=== PATIENT | male | born 1955 | race Caucasian/White ===

== ENCOUNTER → 2016-07-26 | Outpatient (CLI) | payer BC ==
[~2016-07-26] MED LIST: ASPCH81X PO; HYDR25TA5 PO; METF1TAB53 PO; MULT-506 PO; OMEG10007 PO; OXYC-57 PO; POTATAB13 PO
--- NOTE | 2016-07-26 08:56 | DIAGNOSTIC IMAGING REPORT ---
KUB HISTORY: NEPHROLITHIASIS 592.0,N20.0 COMPARISON: KV 02/08/2016. FINDINGS: The bowel gas pattern is unremarkable. There are no dilated loops of small bowel to suggest an obstruction. A few small stones within the left kidney, unchanged. Dominant stone measures 4 mm. There is also a small stone within the lower pole of the right kidney. No ureteral or bladder calculi. No pneumoperitoneum or pneumatosis. IMPRESSION: Stable bilateral nephrolithiasis. Electronically signed by: Donal Marin M.D. 07/26/2016 8:54 AM Dictated Date/Time: 07/26/2016 8:53 AM
== END ==
LOC: C.RAD 08:28
PROVIDERS: ATTEND Urology
DX: N20.0 Calculus of kidney (principal)

== ENCOUNTER → 2017-02-15 | Outpatient (CLI) | payer BC ==
--- NOTE | 2017-02-15 08:37 | DIAGNOSTIC IMAGING REPORT ---
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 Maximum dimension left is 4 mm and on the right 2.5 mm. No new or additional calcifications. Nonobstructive bowel pattern. IMPRESSION: Bilateral nephrocalcinosis. No change from the prior study. The above report was generated using voice recognition software. It may contain grammatical, syntax or spelling errors. Electronically signed by: Desmond Callaway M.D. 02/15/2017 8:36 AM Dictated Date/Time: 02/15/2017 8:34 AM
== END | disposition home or self-care (01) ==
LOC: C.LAB 08:16
PROVIDERS: ATTEND Urology
DX: E83.59 Other disorders of calcium metabolism (principal); N29 Other disorders of kidney and ureter in diseases classified elsewhere; N40.1 Benign prostatic hyperplasia with lower urinary tract symptoms

== ENCOUNTER 2018-02-10 19:14 | Inpatient (IN) ==
[2018-02-10] MEDS ORDERED: ACETAMINOPHEN 500 MG TAB PO STA (19:28)
[2018-02-10] MEDS ORDERED: SODIUM CHLORIDE 0.9% 1000ML 1,000 ML IV SCH (19:30)
--- NOTE | 2018-02-10 19:57 | Emergency Department Note ---
Entered by Lyndsay Oh acting as a scribe for ED Provider Note CHIEF COMPLAINT: Fever HISTORY OF PRESENT ILLNESS: The patient is a 62 year old male with a history of type 2 diabetes and hypertension who presents to the Emergency Room with complaints of a worsening fever starting yesterday night. The patient reports that he had a transrectal biopsy of the prostate performed by Dr. Padilla 2 days ago. He states that he felt uncomfortable secondary to the biopsy yesterday but did not have any rectal or urinary problems aside for diarrhea starting yesterday. He notes that he did not sleep well last night because he developed a fever and chills accompanied by heart racing and intermittent shooting abdominal pain. He currently denies any abdominal pain but complains of a new mid-back pain. The patient also denies any cough, sore throat, rhinorrhea, and chest pain in addition to any recent sick contact. He reports that he took Motrin around 1730 for his symptoms and does not regularly take medications. He states that he did not try contacting Dr. Padilla about his symptoms before presenting to the ED. Pt denies LOC, headache, diaphoresis, visual changes, neck pain, breathing difficulties, nausea, vomiting, numbness, weakness, lymphadenopathy, rash, or other complaints. REVIEW OF SYSTEMS: See HPI for pertinent positives and negatives. A total of ten systems were reviewed and were otherwise negative. PMHx/PSHx: Type 2 diabetes Hypertension SOCIAL HISTORY: Patient lives at home. PHYSICAL EXAM: GENERAL: Awake, alert, well-appearing, in no distress HENT: Normocephalic, atraumatic. Oropharynx unremarkable. EYES: Normal conjunctiva. Sclera non-icteric. NECK: Inspection normal. Non-tender. Supple. No nuchal rigidity. FROM. No masses. RESPIRATORY: Clear to auscultation. No wheezes. No rales. Normal respiratory effort. CARDIAC: Normal rate. Boderline tachycardic rhythm. No murmurs. No rubs. Extremities warm and well perfused. Pulses equal. No JVD. GI: Soft, non-distended. No rebound or guarding. No masses. Left lower and suprapubic tenderness. RECTAL: Deferred. MUSCULOSKELETAL: Atraumatic. Chest examination reveals no tenderness. The back is symmetrical on inspection without obvious abnormality. There is no CVA tenderness to palpation. No joint edema. LOWER EXTREMITIES: Calves are equal size bilaterally and non-tender. No edema. No discoloration. NEURO: Normal sensorium. No sensory or motor deficits noted. SKIN: No rash or jaundice noted. EMERGENCY DEPARTMENT COURSE: 1926: Past medical records reviewed. The patient was evaluated in room B3B, and a complete history and physical examination were performed. 2110: I reviewed the patient's case with Dr. Mcqueen - Urology, [facility]. Dr. Mcqueen agrees with the broad spectrum antibiotics and admission to medicine. 2205: I checked on the patient and updated him on his test results. 2211: I reviewed the patient's case with Dr. Peralta - [facility]. Dr. Peralta will evaluate the patient for further management. MEDICAL DECISION MAKING: Triage Nursing notes reviewed. The patient's presentation and history were concerning for fever and recent biopsy. Etiologies such as viral syndrome, urinary tract infection, sepsis, bacteremia, pneumonia, meningitis, as well as others were entertained. Patient was evaluated. He had chills and rigors. Shortly after the initial physical the patient spiked a temperature up to 39. He was treated with Tylenol. He was hydrated. Blood work including blood cultures were obtained. Urine and urine culture was obtained. He was given a dose of IV Zosyn. His blood work was rather unremarkable however his pro calcitonin was elevated. This is concerning for possible bacteremia. The patient's urinalysis was concerning for infection. I discussed the case with the on-call urologist, Dr. Mcqueen. He agreed with broad-spectrum antibiotics and need for hospitalization. The patient was informed of the findings. I did discuss the case with internal medicine. The patient was evaluated in the ER and admitted for further management. IMPRESSION: UTI Status post biopsy Suspected bacteremia PLAN: Admit The scribe's documentation has been prepared under my direction and personally reviewed by me in its entirety. I confirm that the note above accurately reflects all work, treatment, procedures, and medical decision making performed by me. Impression & Plan Febrile illness, UTI (urinary tract infection), Status post biopsy Past Med/Surg History Medical History Diabetes mellitus, type 2 (Chronic) Hypertension (Chronic) History of renal calculi (Chronic) Surgical History H/O left knee surgery (Chronic) Social History marital status: Current Living Situation: Spouse current occupational status: retired Other Information That Helps Us Care for You: No Feels Safe at Home: Yes Safety Concerns: Feels Safe At This Time Smoking Status: Never smoker Do You Dip or Chew Tobacco: No Second Hand Exposure: No Tobacco Cessation Education Requested by Patient: No Hx Alcohol Use: No Hx Substance Use: No Beliefs That Will Affect Care: None Preferred Language: Macanese Communication Ability: Effective H[place] Required: No Results & Data Vital Signs Vital Signs - 24 hr 02/10/18 19:17 02/10/18 20:15 02/10/18 20:55 Temperature 38.4 C H 39.2 C H 38.3 C H Temperature Source Oral Oral Oral Sepsis Recent Fever Within 48 Hours No Sepsis Action Taken by Nursing No Action Required Pulse Rate 95 H Pulse Rate [Apical] 96 H Pulse Rhythm [Apical] Pulse Strength [Apical] Respiratory Rate 18 18 Respiratory Effort / Characteristics Non-Labored Spontaneous Respiratory Depth Normal Normal Respiratory Pattern Blood Pressure 139/80 Blood Pressure [Left Arm] 134/79 Blood Pressure Mean 99 Blood Pressure Mean [Left Arm] 97 Blood Pressure Position [Left Arm] Pulse Oximetry 100 Oxygen Delivery Method Room Air 02/10/18 21:30 02/10/18 23:44 02/11/18 00:00 Temperature 39.3 C H Temperature Source Oral Sepsis Recent Fever Within 48 Hours Sepsis Action Taken by Nursing Pulse Rate 108 H 108 H Pulse Rate [Apical] 86 110 H Pulse Rhythm [Apical] Regular Pulse Strength [Apical] Normal Respiratory Rate 18 18 20 Respiratory Effort / Characteristics Non-Labored Spontaneous Respiratory Depth Normal Normal Respiratory Pattern Regular Blood Pressure 143/68 H Blood Pressure [Left Arm] 136/68 143/79 H Blood Pressure Mean Blood Pressure Mean [Left Arm] 90 100 Blood Pressure Position [Left Arm] Sitting Pulse Oximetry 95 98 95 Oxygen Delivery Method Room Air Room Air Room Air 02/11/18 01:29 Temperature 39 C H Temperature Source Oral Sepsis Recent Fever Within 48 Hours Sepsis Action Taken by Nursing Pulse Rate Pulse Rate [Apical] Pulse Rhythm [Apical] Pulse Strength [Apical] Respiratory Rate Respiratory Effort / Characteristics Respiratory Depth Respiratory Pattern Blood Pressure Blood Pressure [Left Arm] Blood Pressure Mean Blood Pressure Mean [Left Arm] Blood Pressure Position [Left Arm] Pulse Oximetry Oxygen Delivery Method Home Medications Current Medication List: was personally reviewed by me Laboratory Data Attestation: I reviewed the patient's lab results. Result diagrams: 02/10/18 20:10 02/10/18 20:10 Lab Results 02/10/18 02/10/18 02/10/18 Range/Units 19:45 20:10 20:10 WBC 8.40 (4.8-10.8) K/uL RBC 5.22 (4.7-6.1) M/uL Hgb 16.4 (14.0-18.0) g/dL Hct 45.5 (42-52) % MCV 87.2 (80-100) fL MCH 31.4 (25-34) pg MCHC 36.0 (32-36) g/dL RDW Std Deviation 40.7 (36.4-46.3) fL RDW Coeff of Lilian 12.7 (11.5-14.5) % Plt Count 106 L (130-400) K/uL MPV 9.3 (7.4-10.4) fL Immature Gran % (Auto) 0.4 % Neut % (Auto) 89.7 % Lymph % (Auto) 4.9 % Delta % (Auto) 4.9 % Eos % (Auto) 0.0 % Baso % (Auto) 0.1 % Immature Gran # (Auto) 0.03 H (0.00-0.02) K/uL Neut # (Auto) 7.54 H (1.4-6.5) K/uL Lymph # (Auto) 0.41 L (1.2-3.4) K/uL Delta # (Auto) 0.41 (0.11-0.59) K/uL Eos # (Auto) 0.00 (0-0.5) K/uL Baso # (Auto) 0.01 (0-0.2) K/uL Sodium (136-145) mmol/L Potassium (3.5-5.1) mmol/L Chloride (98-107) mmol/L Carbon Dioxide (21-32) mmol/L Anion Gap (3-11) BUN (7-18) mg/dl Creatinine (0.6-1.4) mg/dl Est Cr Clr Drug Dosing ml/min Est GFR ( Amer) Est GFR (Non-Af Amer) BUN/Creatinine Ratio (10-20) Glucose (70-99) mg/dl Lactate (0.4-2.0) mmol/L Calcium (8.5-10.1) mg/dl Total Bilirubin (0.2-1) mg/dl AST (15-37) U/L ALT (12-78) U/L Alkaline Phosphatase (45-117) U/L Total Protein (6.4-8.2) gm/dl Albumin (3.4-5.0) gm/dl Globulin (2.5-4.0) gm/dl Albumin/Globulin Ratio (0.9-2) Procalcitonin 1.78 H (0-0.5) ng/ml Urine Color Dark Yellow Urine Appearance Cloudy H (Clear) Urine pH 5.0 (4.5-7.5) Ur Specific [place] 1.023 (1.000-1.030) Urine Protein 1+ H (Negative) Urine Glucose (UA) Trace H (Negative) Urine Ketones Trace H (Negative) Urine Blood 3+ H (Negative) Urine Nitrite Positive H (Negative) Urine Bilirubin Negative (Negative) Urine Urobilinogen Negative (Negative) Ur Leukocyte Esterase 1+ H (Negative) Urine WBC (Auto) >30 H (0-5) /hpf Urine RBC (Auto) >30 H (0-4) /hpf U Hyaline Cast (Auto) 1-5 (0-5) /lpf U Epithel Cells (Auto) 0-5 (0-5) /lpf Urine Bacteria (Auto) 1+ H (Negative) 02/10/18 02/11/18 Range/Units 20:10 00:25 WBC (4.8-10.8) K/uL RBC (4.7-6.1) M/uL Hgb (14.0-18.0) g/dL Hct (42-52) % MCV (80-100) fL MCH (25-34) pg MCHC (32-36) g/dL RDW Std Deviation (36.4-46.3) fL RDW Coeff of Lilian (11.5-14.5) % Plt Count (130-400) K/uL MPV (7.4-10.4) fL Immature Gran % (Auto) % Neut % (Auto) % Lymph % (Auto) % Delta % (Auto) % Eos % (Auto) % Baso % (Auto) % Immature Gran # (Auto) (0.00-0.02) K/uL Neut # (Auto) (1.4-6.5) K/uL Lymph # (Auto) (1.2-3.4) K/uL Delta # (Auto) (0.11-0.59) K/uL Eos # (Auto) (0-0.5) K/uL Baso # (Auto) (0-0.2) K/uL Sodium 131 L (136-145) mmol/L Potassium 3.5 (3.5-5.1) mmol/L Chloride 96 L (98-107) mmol/L Carbon Dioxide 24 (21-32) mmol/L Anion Gap 11.0 (3-11) BUN 9 (7-18) mg/dl Creatinine 1.13 (0.6-1.4) mg/dl Est Cr Clr Drug Dosing 84.0 ml/min Est GFR ( Amer) 80.9 Est GFR (Non-Af Amer) 69.8 BUN/Creatinine Ratio 8.2 L (10-20) Glucose 182 H (70-99) mg/dl Lactate 2.2 H* (0.4-2.0) mmol/L Calcium 9.1 (8.5-10.1) mg/dl Total Bilirubin 1.5 H (0.2-1) mg/dl AST 26 (15-37) U/L ALT 51 (12-78) U/L Alkaline Phosphatase 65 (45-117) U/L Total Protein 7.7 (6.4-8.2) gm/dl Albumin 3.9 (3.4-5.0) gm/dl Globulin 3.8 (2.5-4.0) gm/dl Albumin/Globulin Ratio 1.0 (0.9-2) Procalcitonin (0-0.5) ng/ml Urine Color Urine Appearance (Clear) Urine pH (4.5-7.5) Ur Specific [place] (1.000-1.030) Urine Protein (Negative) Urine Glucose (UA) (Negative) Urine Ketones (Negative) Urine Blood (Negative) Urine Nitrite (Negative) Urine Bilirubin (Negative) Urine Urobilinogen (Negative) Ur Leukocyte Esterase (Negative) Urine WBC (Auto) (0-5) /hpf Urine RBC (Auto) (0-4) /hpf U Hyaline Cast (Auto) (0-5) /lpf U Epithel Cells (Auto) (0-5) /lpf Urine Bacteria (Auto) (Negative) Administered Medications Acetaminophen (Tylenol) 650 mg PO Q4H PRN PRN Reason: Pain or Fever Stop: 03/13/18 00:09 Last Admin: 02/11/18 00:34 Dose: 650 mg Sodium Chloride (Nss 1000ml) 1,000 mls @ 150 mls/hr IV .Q6H40M [facility] Stop: 03/13/18 00:09 Last Admin: 02/11/18 00:34 Dose: 150 mls/hr Piperacillin Sod/Tazobactam (Sod 3.375 gm/ Dextrose) 115 mls @ 30 mls/hr IV Q8H [facility] Stop: 02/21/18 01:59 Last Admin: 02/11/18 01:23 Dose: 30 mls/hr Vancomycin HCl 2,500 mg/ (Sodium Chloride) 550 mls @ 200 mls/hr IV TODAY@0130 [facility] Stop: 02/11/18 04:14 Last Admin: 02/11/18 01:22 Dose: 200 mls/hr Discontinued Medications Acetaminophen (Tylenol) 1,000 mg PO ONE STA Stop: 02/10/18 19:29 Last Admin: 02/10/18 19:33 Dose: 1,000 mg Sodium Chloride (Nss 1000ml) 1,000 mls @ 999 mls/hr IV .Q1H1M [facility] Stop: 02/10/18 20:30 Last Infusion: 02/10/18 21:10 Dose: 0 mls/hr Admin: 02/10/18 20:14 Dose: 999 mls/hr Piperacillin Sod/Tazobactam Sod (Zosyn) 4.5 gm in 120 mls @ 240 mls/hr IV NOW ONE Stop: 02/10/18 21:23 Last Infusion: 02/10/18 21:51 Dose: 0 mls/hr Admin: 02/10/18 20:59 Dose: 240 mls/hr Ioversol (Optiray 320 125ml) 116 ml IV ONCE PRN PRN Reason: Interaction Checking Stop: 02/14/18 21:10 Last Admin: 02/10/18 21:12 Dose: 116 ml Ondansetron HCl (Zofran) 4 mg IV NOW STA Stop: 02/10/18 23:17 Last Admin: 02/10/18 23:23 Dose: 4 mg Imaging Data Radiologist's Impression: Radiology results as stated below per my review and the radiologist's interpretation: ABDOMEN AND PELVIS CT WITH IV CONTRAST CT DOSE: 880.26 mGy.cm HISTORY: Acute lower abdominal pain with recent prostate biopsy Lower abd pain , fever. Recent prostate biopsy TECHNIQUE: Multiaxial CT images of the abdomen and pelvis were performed following the use of intravenous contrast. A dose lowering technique was utilized adhering to the principles of ALARA. COMPARISON STUDY: CT abdomen and pelvis 09/25/2015 FINDINGS: Lung bases are generally clear. No pneumatosis or pneumoperitoneum. Imaged inferior cardiac chambers demonstrate coronary arterial calcifications. Hepatic steatosis. Liver is otherwise unremarkable. No intrahepatic biliary ductal dilation. Spleen is enlarged, 16.2 cm. Patency of the hepatic and portal veins. The pancreas, gallbladder and adrenal glands are unremarkable. Mild nonspecific bilateral perinephric stranding. 4 mm nonobstructing calculus of the inferior pole right kidney. There are proximally 3 nonobstructing calculi noted about the left kidney measuring up to 4 mm. No ureteral calculi or obstructive uropathy. Mild wall thickening of the urinary bladder with partial distention. Prostamegaly with TURP hyperattenuation noted about the TURP defect. Moderate right and moderate to large left inguinal hernias, fat filled. Calcification of the aorta without aneurysm. IVC is unremarkable. No bowel obstruction. Mild colonic diverticulosis without acute diverticulitis. Linear hyperattenuating focus about the terminal ileum suggests a pill. Normal appendix. No bowel obstruction. Fat filled periumbilical hernia, diastases 2.1 cm. Mild nonspecific stranding about the rectum prosthetic distribution. Indeterminate mildly prominent lymph nodes are seen along the lateral anterior margin of the urinary bladder measuring up to 7 mm in short axis. Bones appear intact. No suspicious lytic or blastic bony lesions. Multilevel spondylitic spurring and facet arthrosis. Grade 1 anterolisthesis L4 on L5. IMPRESSION: 1. Prostatomegaly with TURP defect. Hyperattenuation about the TURP defect suggests hemorrhage at the biopsy site. 2. Mild wall thickening of the bladder with partial distention. Findings may reflect sequela of chronic bladder outlet obstruction or cystitis. Correlate with urinalysis. 3. Nonspecific mildly prominent perivesicular lymph nodes. 4. Colonic diverticulosis. 5. Hepatic steatosis. 6. Additional findings as above. Electronically signed by: Fazal Moore M.D. 02/10/2018 9:50 PM Blood Pressure Blood Pressure Findings: Normal blood pressure Discharge Plan Visit Data *Final* Discharge Date/Time: 02/10/18 23:44 Chief Complaint: Fever Stated Complaint: FEVER 102.4 POST PROCCEDURE ED Provider: Quincy Reddy Discharge Problem: Febrile illness, UTI (urinary tract infection), Status post biopsy Patient Disposition: Admitted As Inpatient Discharge Instructions Interventions: ED Discharge Assessment Last Done: 02/10/18 23:44 The scribe's documentation has been prepared under my direction and personally reviewed by me in its entirety. I confirm that the note above accurately reflects all work, treatment, procedures, and medical decision making performed by me.
[2018-02-10 20:07] LABS: Bacteria Urine Automated 1+ (Negative); Bilirubin Urine Negative (Negative); Color Urine Dark Yellow; Epithelial Cell Urine Auto 0-5 /lpf (0-5); Glucose Urine UA Trace (Negative); Ketones Urine Trace (Negative); Leukocyte Esterase Urine 1+ (Negative); Nitrite Urine Positive (Negative); Protein Urine 1+ (Negative); Specific Gravity Urine 1.023 (1.000-1.030); Urobilinogen Urine Negative (Negative); WBC Urine Automated >30 /hpf (0-5)
[2018-02-10 20:08] LABS: Appearance Urine Cloudy (Clear)
[2018-02-10 20:23] LABS: Basophils # (auto) 0.01 K/uL (0-0.2); Basophils % (auto) 0.1 %; Hematocrit (blood only) 45.5 % (42-52); Hemoglobin 16.4 g/dL (14.0-18.0); Immature Granulocytes # (auto) 0.03 K/uL (0.00-0.02); Immature Granulocytes % (auto) 0.4 %; Lymphocytes # (auto) 0.41 K/uL (1.2-3.4); Lymphocytes % (auto) 4.9 %; Mean Corpuscular Volume 87.2 fL (80-100); Mean Platelet Volume 9.3 fL (7.4-10.4); Monocytes # (auto) 0.41 K/uL (0.11-0.59); Monocytes % (auto) 4.9 %; Neutrophils # (auto) 7.54 K/uL (1.4-6.5); Neutrophils % (auto) 89.7 %; Platelet Count 106 K/uL (130-400); RDW Coefficient of Variation 12.7 % (11.5-14.5); RDW Standard Deviation 40.7 fL (36.4-46.3); Red Blood Count 5.22 M/uL (4.7-6.1)
[2018-02-10 20:45] LABS: Albumin Level 3.9 gm/dl (3.4-5.0); BUN Creatinine Ratio 8.2 (10-20); Calcium 9.1 mg/dl (8.5-10.1); Est GFR (African American) 80.9; Est GFR (Non-African American) 69.8; Potassium 3.5 mmol/L (3.5-5.1)
[2018-02-10 20:48] LABS: Bilirubin,Total 1.5 mg/dl (0.2-1); Globulin 3.8 gm/dl (2.5-4.0); Total Protein 7.7 gm/dl (6.4-8.2)
[2018-02-10] MEDS ORDERED: PIPERACILL/TAZOBAC CONSULT ACTIVE PRN (20:54)
[2018-02-10] MEDS ORDERED: PIPERACILLIN/TAZOBACTAM 4.5 GM/120 ML BAG IV ONE (20:54)
[2018-02-10] MEDS ORDERED: OPTIRAY 320 125ml IV PRN (21:11)
--- NOTE | 2018-02-10 21:52 | CT Scan Report ---
ABDOMEN AND PELVIS CT WITH IV CONTRAST CT DOSE: 880.26 mGy.cm HISTORY: Acute lower abdominal pain with recent prostate biopsy Lower abd pain, fever. Recent prost ate biopsy TECHNIQUE: Multiaxial CT images of the abdomen and pelvis were performed following the use of intrave nous contrast. A dose lowering technique was utilized adhering to the principles of ALARA. COMPARISON STUDY: CT abdomen and pelvis 09/25/2015 FINDINGS: Lung bases are generally clear. No pneumatosis or pneumoperitoneum. Imaged inferior cardiac chambers demonstrate coronary arterial calcifications. Hepatic steatosis. Liver is otherwise unremarkable. No intrahepatic biliary ductal dilation. Spleen i s enlarged, 16.2 cm. Patency of the hepatic and portal veins. The pancreas, gallbladder and adrenal g lands are unremarkable. Mild nonspecific bilateral perinephric stranding. 4 mm nonobstructing calculu s of the inferior pole right kidney. There are proximally 3 nonobstructing calculi noted about the le ft kidney measuring up to 4 mm. No ureteral calculi or obstructive uropathy. Mild wall thickening of the urinary bladder with partial distention. Prostamegaly with TURP hyperattenuation noted about the TURP defect. Moderate right and moderate to large left inguinal hernias, fat filled. Calcification of the aorta without aneurysm. IVC is unremarkable. No bowel obstruction. Mild colonic diverticulosis without acute diverticulitis. Linear hyperattenuati ng focus about the terminal ileum suggests a pill. Normal appendix. No bowel obstruction. Fat filled periumbilical hernia, diastases 2.1 cm. Mild nonspecific stranding about the rectum prosthetic distri bution. Indeterminate mildly prominent lymph nodes are seen along the lateral anterior margin of the urinary bladder measuring up to 7 mm in short axis. Bones appear intact. No suspicious lytic or blast ic bony lesions. Multilevel spondylitic spurring and facet arthrosis. Grade 1 anterolisthesis L4 on L 5. IMPRESSION: 1. Prostatomegaly with TURP defect. Hyperattenuation about the TURP defect suggests hemorrhage at the biopsy site. 2. Mild wall thickening of the bladder with partial distention. Findings may reflect sequela of chron ic bladder outlet obstruction or cystitis. Correlate with urinalysis. 3. Nonspecific mildly prominent perivesicular lymph nodes. 4. Colonic diverticulosis. 5. Hepatic steatosis. 6. Additional findings as above. Electronically signed by: Fazal Moore M.D. 02/10/2018 9:50 PM
[2018-02-10] MEDS ORDERED: ONDANSETRON INJ 2 MG/ML 2 ML VIAL IV STA (23:16)
[2018-02-11] MEDS ORDERED: ONDANSETRON INJ 2 MG/ML 2 ML VIAL IV PRN (00:10)
[2018-02-11] MEDS ORDERED: NITROGLYCERIN SL 0.4 MG/TAB TAB SL PRN (00:10)
[2018-02-11] MEDS ORDERED: PIPERACILL/TAZOBAC CONSULT ACTIVE PRN (00:10)
[2018-02-11] MEDS ORDERED: DEXTROSE 50% 50 ML SYRINGE IV PRN (00:25)
[2018-02-11] MEDS ORDERED: GLUCOSE 40% GEL 15 GM TUBE PO PRN (00:25)
[2018-02-11] MEDS ORDERED: GLUCAGON FOR INJ 1 MG VIAL SQ PRN (00:25)
[2018-02-11] MEDS ORDERED: GLUCOSE 10 TABS/TUBE PO PRN (00:25)
[2018-02-11] MEDS ORDERED: CARBOHYDRATES FOR HYPOGLYCEMIA PO PRN (00:25)
[2018-02-11] MEDS: ACETAMINOPHEN 325 MG TAB PO PRN ×4 (00:34→19:58)
[2018-02-11] MEDS: SODIUM CHLORIDE 0.9% 1000ML 1,000 ML IV SCH ×4 (00:34→19:58)
[2018-02-11] MEDS ORDERED: VANCOMYCIN CONSULT ACTIVE PRN (01:02)
[2018-02-11] MEDS ORDERED: VANCOMYCIN HCL 1,000 MG in SODIUM CHLORIDE 0.9% 250 ML IV SCH (01:15)
[2018-02-11] MEDS: PIPERACILLIN/TAZOBACTAM 3.375 GM in DEXTROSE 5% 100 ML IV SCH ×3 (01:23→17:44)
--- NOTE | 2018-02-11 01:23 | History and Physical Report ---
DATE OF ADMISSION: 02/10/2018 CHIEF COMPLAINT: Fevers, recent TURP procedure. HISTORY OF PRESENT ILLNESS: This is a 62-year-old male with past medical history significant for diabetes, hypertension, history of multiple kidney stones and cystoscopies, chronic kidney disease stage III, BPH, who recently had TURP procedure last Sunday presents with fever at home. Post-procedure, he was told that he will have some hematuria and also some blood in the stools. He had some blood in the stools on Sunday, but that has almost resolved now, but still has some hematuria. No burning micturition, but he was having temperature 101 degrees Fahrenheit at home and also having chills. So he came to the ER. In the ER he was having some temp spike, but hemodynamics are stable and no elevation of white count, but urinalysis was positive. Procalcitonin level was high. ER physician discussed with urologist medical economics consultant and was okay for IV Zosyn and admission in the hospital. Currently, patient feels chilly. He says once in a while he gets shooting pain to the groins. He is somewhat nauseous. Denies any chest pain. No shortness of breath, no cough, no abdominal pain. Currently feeling hungry. Denies any headaches, no dizziness, no blurred visions. No earache, no runny nose, no sore throat, no difficulty swallowing. Currently hemodynamically stable. ALLERGIES: No known drug allergies. PAST MEDICAL HISTORY: As mentioned above. PAST SURGICAL HISTORY: Left knee surgery and recent cystoscopies and recent TURP procedure. MEDICATIONS: The patient is on aspirin 81 mg p.o. daily, Cipro 500 mg b.i.d., hydrochlorothiazide 25 mg p.o. daily, metformin 1000 mg p.o. b.i.d., fish oil 1 gram p.o. daily, potassium citrate 15 mg p.o. daily. FAMILY HISTORY: Significant for diabetes, heart disease, hypertension, kidney disease, and kidney stones. He says his mother had kidney failure and father had kidney cancer. SOCIAL HISTORY: No smoking history. No alcohol. , lives with his . REVIEW OF SYMPTOMS: As per HPI. Rest of review of systems negative. PHYSICAL EXAMINATION: GENERAL: The patient is of moderate build, not in acute distress. VITAL SIGNS: Temperature 38.3, pulse 86, respiratory rate 18, blood pressure 136/68, oxygen 95% on room air. HEENT: No pallor, no icterus. Pupils equal, round, and reactive to light. NECK: No JVD or neck masses, no carotid bruits. CARDIOVASCULAR: S1, S2 heard. Regular rate and rhythm, no murmur, no gallop. RESPIRATORY SYSTEM: Normal AP diameter. No accessory muscle use. No wheezing, no crackles. ABDOMEN: Soft, bowel sounds present. Nontender. No distention. CENTRAL NERVOUS SYSTEM: Cranial nerves II through XII are grossly intact, nonfocal. EXTREMITIES: No edema, no erythema. LABORATORY DATA: WBC is 8.4, hemoglobin 16.4, hematocrit 45.5, platelets 106. Sodium 131, potassium 3.5, chloride 96, CO2 of 24, BUN 9, creatinine 1.1, serum glucose 182, calcium 9.1, total bilirubin 1.5, AST 26, ALT 51, alkaline phosphatase 65, procalcitonin 1.7. Urinalysis, positive for nitrite, leukocyte esterase, and blood. IMAGING DATA: CT of the abdomen and pelvis shows prostatomegaly with TURP defect, hyperattenuation of the TURP defect with hemorrhage at the biopsy site, mild wall thickening of the bladder with partial distention. Findings may reflect sequelae of chronic bladder outlet obstruction and cystitis. Colonic diverticulosis, hepatic steatosis. ASSESSMENT AND PLAN: This is a 62-year-old male who presents with fever post transurethral resection of the prostate . 1. Fever post transurethral resection of the prostate procedure on Sunday. Developed fever today, 101 degrees, also having some chills. Had a temp spike in the ER, but there was no leukocytosis, but says he is still having some chills and we will check the lactic acid for early sepsis. Urinalysis was positive. ER had given IV Zosyn which urology was okay to continue. Will continue IV Zosyn. Follow the lactic acids, follow the blood cultures and urine cultures. Follow the repeat labs. Urology consulted for further recommendation. There is no obvious abscess on the CAT scan, but it is showing mild hemorrhage at the biopsy site. Closely monitor in the tele floor. 2. Diabetes. Hold metformin. Place him on insulin sliding scale. Followup HbA1c level. 3. History of hypertension. Continue to hold hydrochlorothiazide. We will monitor the blood pressure. Currently patient may be in early sepsis. 4. Deep venous thrombosis prophylaxis, sequential compression devices for now. DISPOSITION: Closely monitor in the tele floor. Expect to discharge home and follow with his family doctor. Level 1 full code. MTDD
[2018-02-11] MEDS ORDERED: VANCOMYCIN HCL 2,500 MG in SODIUM CHLORIDE 0.9% 500 ML IV SCH (01:30)
[2018-02-11 05:37] LABS: Basophils # (auto) 0.01 K/uL (0-0.2); Basophils % (auto) 0.1 %; Hematocrit (blood only) 44.3 % (42-52); Hemoglobin 15.6 g/dL (14.0-18.0); Immature Granulocytes # (auto) 0.05 K/uL (0.00-0.02); Immature Granulocytes % (auto) 0.5 %; Lymphocytes # (auto) 0.38 K/uL (1.2-3.4); Mean Corpuscular Hgb Conc 35.2 g/dL (32-36); Mean Corpuscular Volume 88.4 fL (80-100); Mean Platelet Volume 9.1 fL (7.4-10.4); Monocytes % (auto) 4.3 %; Neutrophils # (auto) 8.56 K/uL (1.4-6.5); Neutrophils % (auto) 91.1 %; Platelet Count 101 K/uL (130-400); RDW Coefficient of Variation 12.7 % (11.5-14.5); RDW Standard Deviation 40.9 fL (36.4-46.3); Red Blood Count 5.01 M/uL (4.7-6.1)
[2018-02-11 06:07] LABS: Albumin Level 3.4 gm/dl (3.4-5.0); BUN Creatinine Ratio 7.3 (10-20); Bilirubin Direct 0.6 mg/dl (0-0.2); Calcium 8.7 mg/dl (8.5-10.1); Creatinine Clr Calc Pharmacy 80.4 ml/min; Est GFR (African American) 77.5; Est GFR (Non-African American) 66.9; Magnesium 1.4 mg/dl (1.8-2.4); Potassium 3.8 mmol/L (3.5-5.1)
[2018-02-11 06:09] LABS: Bilirubin,Total 1.6 mg/dl (0.2-1); Total Protein 7.1 gm/dl (6.4-8.2)
[2018-02-11 07:11] LABS: Estimated Average Glucose 171 mg/dl
[2018-02-11] MEDS: INSULIN ASPART 100 UNITS/ML 3 ML PEN SC SCH ×4 (08:17→20:38)
[2018-02-11] MEDS: MAGNESIUM SULFATE / D5W 1 GM/100 ML BAG IV SCH ×4 (08:58→12:25)
--- NOTE | 2018-02-11 11:19 | Hospitalist Progress Note ---
Date of Service February 11, 2018 Assessment & Plan (1) Sepsis: Undergoing resuscitation with IV fluids, Vanco and Zosyn started empirically. Lactate is slightly elevated, will trend again in 6 hours. Patient feels somewhat better since arrival. States shivers have resolved but still febrile. Patient reports pain in bladder area has improved, however this area is distillation operator to palpation. Some persistent gross hematuria is present in bedside urinal. Awaiting urology evaluation and recommendations regarding persistent gross hematuria. Continue empiric antibiotic therapy pending blood and urine cultures. (2) UTI (urinary tract infection): Plan as above. Continue Vanco and Zosyn pending urine culture. (3) Hypomagnesemia: Likely related to multiple episodes of diarrhea yesterday. Replete and repeat mag in a.m. Per patient diarrhea has resolved. (4) Status post biopsy: Status post prostate biopsy last week. Consulted urology for evaluation recommendations with persistent possible hemorrhaging of the biopsy site noted on CT scan overnight. Patient is n.p.o. until further regulations. (5) Diabetes mellitus, type 2: Hemoglobin A1c is 7.6. Metformin held and will utilize insulin while patient hospitalized. Will add Lantus to current hospital regimen. (6) Hypertension: Holding HCTZ during sepsis resuscitation efforts. (7) DVT prophylaxis: Adding Lovenox daily Full code Disposition-continue to monitor on telemetry. Continues to be resuscitated from a sepsis standpoint. Expect to return home when medically stable. Gina Cheung DO [facility] hospitalist Subjective 62-year-old man status post prostate biopsy last week presented with dysuria, gross hematuria, suprapubic tenderness, fever and shaking chills. He reports several episodes of diarrhea yesterday which has since resolved. He is reporting being hungry but is currently n.p.o. for possible procedure based on urology recommendations. Reports feeling somewhat better overnight since therapy began. Denies any other symptoms at this time. Physical Exam 2 Vital Signs (Past 24 Hours): Last Vital Signs Temp 38.2 C H 02/11/18 07:05 Pulse 108 H 02/11/18 08:00 Resp 16 02/11/18 07:05 BP 130/61 02/11/18 07:05 Pulse Ox 95 02/11/18 07:05 CONSTITUTIONAL: WNWD, vitals as above, generally ill-appearing EYES: injected conjuctivae, no scleral icterus ENT: external ear and nose normal, MMM RESPIRATORY: clear to auscultation bilaterally, no crackles, rales or wheezes, normal respiratory effort CARDIOVASCULAR: regular rate and rhythm, S1 and 2 heard without murmurs, gallops or rubs, no JVD, no peripheral edema, no carotid bruits GASTROINTESTINAL: normal bowel sounds, soft,TTP in suprapubic>LLQ>RLQ. No epigastric or upper abdominal tenderness. Some guarding present. MUSCULOSKELETAL: strength 5/5 throughout, head is normocephalic and atraumatic , neck supple SKIN: warm and dry NEUROLOGIC: No facial palsy, no dysarthria. CN 2-12 grossly intact, normal cognition, normal speech, no tremor PSYCHIATRIC: alert cooperative and oriented to person, place and time. Results & Data Laboratory Results Short CBC 02/10/18 02/11/18 02/11/18 Range/Units 20:10 05:18 07:08 WBC 8.40 9.40 (4.8-10.8) K/uL Hgb 16.4 15.6 (14.0-18.0) g/dL Hct 45.5 44.3 (42-52) % Plt Count 106 L 101 L (130-400) K/uL POC Glucose 210 H (70-99) BMP 02/10/18 02/11/18 20:10 05:18 Sodium 131 L 134 L Potassium 3.5 3.8 Chloride 96 L 98 Carbon Dioxide 24 29 BUN 9 9 Creatinine 1.13 1.17 Glucose 182 H 205 H Calcium 9.1 8.7 Liver Function 02/10/18 02/11/18 Range/Units 20:10 05:18 Total Bilirubin 1.5 H 1.6 H (0.2-1) mg/dl Direct Bilirubin 0.6 H (0-0.2) mg/dl AST 26 24 (15-37) U/L ALT 51 40 (12-78) U/L Alkaline Phosphatase 65 60 (45-117) U/L Albumin 3.9 3.4 (3.4-5.0) gm/dl Urine 02/10/18 Range/Units 19:45 Urine Color Dark Yellow Urine Appearance Cloudy H (Clear) Urine pH 5.0 (4.5-7.5) Ur Specific [place] 1.023 (1.000-1.030) Urine Protein 1+ H (Negative) Urine Glucose (UA) Trace H (Negative) Diagnostic Findings CT abdomen and pelvis with IV contrast: FINDINGS: Lung bases are generally clear. No pneumatosis or pneumoperitoneum. Imaged inferior cardiac chambers demonstrate coronary arterial calcifications. Hepatic steatosis. Liver is otherwise unremarkable. No intrahepatic biliary ductal dilation. Spleen is enlarged, 16.2 cm. Patency of the hepatic and portal veins. The pancreas, gallbladder and adrenal glands are unremarkable. Mild nonspecific bilateral perinephric stranding. 4 mm nonobstructing calculus of the inferior pole right kidney. There are proximally 3 nonobstructing calculi noted about the left kidney measuring up to 4 mm. No ureteral calculi or obstructive uropathy. Mild wall thickening of the urinary bladder with partial distention. Prostamegaly with TURP hyperattenuation noted about the TURP defect. Moderate right and moderate to large left inguinal hernias, fat filled. Calcification of the aorta without aneurysm. IVC is unremarkable. No bowel obstruction. Mild colonic diverticulosis without acute diverticulitis. Linear hyperattenuating focus about the terminal ileum suggests a pill. Normal appendix. No bowel obstruction. Fat filled periumbilical hernia, diastases 2.1 cm. Mild nonspecific stranding about the rectum prosthetic distribution. Indeterminate mildly prominent lymph nodes are seen along the lateral anterior margin of the urinary bladder measuring up to 7 mm in short axis. Bones appear intact. No suspicious lytic or blastic bony lesions. Multilevel spondylitic spurring and facet arthrosis. Grade 1 anterolisthesis L4 on L5. IMPRESSION: 1. Prostatomegaly with TURP defect. Hyperattenuation about the TURP defect suggests hemorrhage at the biopsy site. 2. Mild wall thickening of the bladder with partial distention. Findings may reflect sequela of chronic bladder outlet obstruction or cystitis. Correlate with urinalysis. 3. Nonspecific mildly prominent perivesicular lymph nodes. 4. Colonic diverticulosis. 5. Hepatic steatosis. 6. Additional findings as above. Medications Administered Current Inpatient Medications Acetaminophen (Tylenol) 650 mg PO Q4H PRN PRN Reason: Pain or Fever Stop: 03/13/18 00:09 Last Admin: 02/11/18 11:30 Dose: 650 mg Dextrose (Dextrose 50%) 25 - 50 ml IV UD PRN; Protocol PRN Reason: Hypoglycemia Protocol Stop: 03/13/18 00:24 Enoxaparin Sodium (Lovenox) 40 mg SQ Q24H ROB Stop: 03/13/18 11:29 Glucagon (Glucagen) 1 mg SQ UD PRN; Protocol PRN Reason: Hypoglycemia Protocol Stop: 03/13/18 00:24 Glucose (Glucose 40%) 15 - 30 gm PO UD PRN; Protocol PRN Reason: Hypoglycemia Protocol Stop: 03/13/18 00:24 Glucose (Dex4 Glucose) 4 - 8 tabs PO UD PRN; Protocol PRN Reason: Hypoglycemia Protocol Stop: 03/13/18 00:24 Sodium Chloride (Nss 1000ml) 1,000 mls @ 150 mls/hr IV .Q6H40M ROB Stop: 03/13/18 00:09 Last Admin: 02/11/18 08:15 Dose: 150 mls/hr Piperacillin Sod/Tazobactam (Sod 3.375 gm/ Dextrose) 115 mls @ 30 mls/hr IV Q8H [facility] Stop: 02/21/18 01:59 Last Admin: 02/11/18 11:21 Dose: 30 mls/hr Vancomycin HCl 1,250 mg/ (Sodium Chloride) 275 mls @ 125 mls/hr IV Q12H [facility] Stop: 02/13/18 13:29 Magnesium Sulfate/Dextrose (Magnesium Sulfate / D5w) 1 gm in 100 mls @ 100 mls/ hr IV Q1H [facility] Stop: 02/11/18 11:59 Last Admin: 02/11/18 11:19 Dose: 100 mls/hr Insulin Aspart (Novolog Flexpen) 0 units SC ACHS ROB Stop: 03/13/18 07:29 Last Admin: 02/11/18 08:17 Dose: 1 units Insulin Glargine (Lantus Solostar Pen) 10 units SC Q12H [facility] Stop: 03/13/18 11:29 Miscellaneous (Carbohydrates For Hypoglycemia) 15 - 30 gm PO UD PRN PRN Reason: Hypoglycemia Treatment Stop: 03/13/18 00:24 Miscellaneous Information (Consult) 1 ea N/A UD PRN PRN Reason: Consult Stop: 03/13/18 00:09 Miscellaneous Information (Consult) 1 ea N/A UD PRN PRN Reason: Consult Stop: 03/13/18 01:01 Nitroglycerin (Nitrostat) 0.4 mg SL UD PRN PRN Reason: Chest Pain Stop: 03/13/18 00:09 Ondansetron HCl (Zofran) 4 mg IV Q6H PRN PRN Reason: Nausea Stop: 03/13/18 00:09 _ (1) UTI (urinary tract infection) Encounter type: Hematuria presence: without hematuria Indwelling urinary catheter type: Urinary tract infection type: site unspecified Qualified Code( s): N39.0 - Urinary tract infection, site not specified
[2018-02-11] MEDS: ENOXAPARIN INJ 40 MG/0.4 ML SYR SQ SCH (12:48)
[2018-02-11] MEDS ORDERED: GENTAMICIN CONSULT ACTIVE PRN (13:01)
[2018-02-11] MEDS ORDERED: VANCOMYCIN HCL 1,250 MG in SODIUM CHLORIDE 0.9% 250 ML IV SCH (13:30)
[2018-02-11] MEDS ORDERED: GENTAMICIN SULFATE 600 MG in DEXTROSE 5% 100 ML IV SCH (13:45)
[2018-02-11] MEDS ORDERED: IBUPROFEN 600 MG TAB PO STA (13:52)
--- NOTE | 2018-02-11 14:36 | Pharmacy Report ---
Pharmacy Abx Dose Short Note - Date of Service February 11, 2018 - Assessment & Plan Assessment * 62 year old M with urosepsis/confirmed GNR bacteremia s/p TURP last Sunday. Hx multiple kidney stones, DM, and CKD III. * Antibiotics * Double GNR coverage indicated for confirmed GNR bacteremia - gentamicin was added to Zosyn this afternoon (of note was receiving ciprofloxacin as outpatient therefore fluoroquinolones are not likely the best option for a 2nd agent as patient developed current symptoms while on ciprofloxacin) * Vancomycin is also to continue for now - ordered as empiric x48 hours. Spoke w Dr. Cheung - will continue for now 2nd severity of illness but will consider discontinuing tomorrow * Renal * Hx CKD III * SCr currently at/near baseline * Discussed risk of nephrotoxicity 2nd multiple nephrotoxic antibiotics with Dr. Cheung - aware and will monitor. Hoping to de-escalate vancomycin tomorrow if patient improves (and no GPC isolated in cultures) and planning to de- escalate to single agent for Gram negative coverage once sensitivities result. Vancomycin * 25 mg/kg loading dose administered this AM * Ongoing dose of 12.4 mg/kg IV q12h (started by overnight pharmacist) appropriate for now * No trough level needed unless therapy is to extend past tomorrow Gentamicin * Meets criteria for extended interval dosing * Will start 7 mg/kg adjusted body weight IV q24h * Random level per [place] nomogram ordered 8 hr after 1st dose Plan * Vancomycin 1250 mg IV q12. No vancomycin level for now. * Gentamicin 600 mg IV q24h. Random level today @ 2200. Pharmacy will continue to follow and will adjust dose/frequency as necessary. Thank you.
--- NOTE | 2018-02-11 15:36 | Infectious Disease Consult ---
Date of Consultation February 11, 2018 Assessment & Plan (1) Gram negative sepsis: Patient with gram-negative sepsis associated with urinary tract infection following TURP. Pending final identification and sensitivities, will continue patient on IV Zosyn. Will adjust once final sensitivities are available. Length of IV antibiotics will be determined by clinical response. Will discontinue vancomycin given no gram positives identified. Will follow. (2) UTI (urinary tract infection): History of Present Illness Reason for Consultation: Gram-negative sepsis Attending Physician: Gina Cheung DO History of Present Illness 62-year-old male with history of recurrent nephrolithiasis status post cystoscopies, BPH, diabetes mellitus, hypertension, who underwent TURP last Sunday. 2 days later, patient had the acute onset of fever with shaking chills and sweats with weakness, associated with abdominal pain and hematuria. He came to the hospital and found to have evidence of urinary tract infection as well as elevated pro-calcitonin, was started empirically on vancomycin and Zosyn. Urine culture growing gram-negative bacilli, and now blood cultures also positive for gram-negative bacilli. Patient still having chills and sweats. Denies any significant urinary symptoms at present. Hematuria has improved. Allergies Allergy/AdvReac Type Severity Reaction Status Date / Time No Known Allergies Allergy Verified 02/10/18 20:35 Home Medications Home Medications Medication Instructions Recorded Confirmed Type aspirin 81 mg PO DAILY 02/10/18 02/10/18 History ciprofloxacin HCl 500 mg PO Q12H 02/10/18 02/10/18 History hydrochlorothiazide 25 mg PO DAILY 02/10/18 02/10/18 History metformin 1,000 mg PO BID 02/10/18 02/10/18 History omega 1-hjt-msg-fish oil [Fish Oil] 1,000 mg PO DAILY 02/10/18 02/10/18 History potassium citrate 15 mg PO DAILY 02/10/18 02/10/18 History Patient History Medical History Diabetes mellitus, type 2 (Chronic) Hypertension (Chronic) History of renal calculi (Chronic) Surgical History H/O left knee surgery (Chronic) Social History marital status: Current Living Situation: Spouse current occupational status: retired Other Information That Helps Us Care for You: No Feels Safe at Home: Yes Safety Concerns: Feels Safe At This Time Smoking Status: Never smoker Do You Dip or Chew Tobacco: No Second Hand Exposure: No Tobacco Cessation Education Requested by Patient: No Hx Alcohol Use: No Hx Substance Use: No Beliefs That Will Affect Care: None Communication Ability: Effective Review of Systems All systems were reviewed and are negative except as per HPI Physical Exam 2 Vital Signs (Past 24 Hours): Last Vital Signs Temp 39.3 C H 02/11/18 11:27 Pulse 109 H 02/11/18 11:27 Resp 16 02/11/18 11:27 BP 136/61 02/11/18 11:27 Pulse Ox 93 02/11/18 11:27 Constitutional: WD/WN, vitals as above comfortable; no acute distress Eyes: PERRL, conjunctivae normal, anicteric sclerae ENMT: external ear and nose normal, oropharynx normal Neck: trachea midline, no thyromegaly neck nontender Respiratory: normal respiratory effort, lungs clear to auscultation normal percussion; does not use accessory muscles Cardiovascular: Rate/Rhythm: regular rate and regular rhythm Heart Sounds: normal S1 and normal S2; no gallop, no murmur and no cardiac rub Vessels: normal peripheral pulses; no JVD Gastrointestinal (Abdomen): normal bowel sounds, soft, nontender, no hepatosplenomegaly Musculoskeletal: no cyanosis or clubbing, extremities motor strength 5/5 Spine: thoracic spine normal to inspection and lumbar spine normal to inspection ; no cervical spinal tenderness Skin: no rashes, warm and dry normal turgor; no lesions Neurologic: patellar DTR's 2+ bilat, sensation intact no focal motor deficits Psychiatric: A+Ox3, euthymic affect Orientation: cooperative Lymphatic: no cervical or axillary lymphadenopathy no inguinal lymphadenopathy Results & Data Laboratory Results Short CBC 02/10/18 02/11/18 Range/Units 20:10 05:18 WBC 8.40 9.40 (4.8-10.8) K/uL Hgb 16.4 15.6 (14.0-18.0) g/dL Hct 45.5 44.3 (42-52) % Plt Count 106 L 101 L (130-400) K/uL BMP 02/10/18 02/11/18 20:10 05:18 Sodium 131 L 134 L Potassium 3.5 3.8 Chloride 96 L 98 Carbon Dioxide 24 29 BUN 9 9 Creatinine 1.13 1.17 Glucose 182 H 205 H Calcium 9.1 8.7 Liver Function 02/10/18 02/11/18 Range/Units 20:10 05:18 Total Bilirubin 1.5 H 1.6 H (0.2-1) mg/dl Direct Bilirubin 0.6 H (0-0.2) mg/dl AST 26 24 (15-37) U/L ALT 51 40 (12-78) U/L Alkaline Phosphatase 65 60 (45-117) U/L Albumin 3.9 3.4 (3.4-5.0) gm/dl Urine 02/10/18 Range/Units 19:45 Urine Color Dark Yellow Urine Appearance Cloudy H (Clear) Urine pH 5.0 (4.5-7.5) Ur Specific [place] 1.023 (1.000-1.030) Urine Protein 1+ H (Negative) Urine Glucose (UA) Trace H (Negative) Diagnostic Findings Microbiology 02/10/18 20:10 Blood Blood Culture - Preliminary Gram negative bacilli 02/10/18 19:45 Urine,Clean Catch Urine Culture - Preliminary Gram negative bacilli ABDOMEN AND PELVIS CT WITH IV CONTRAST CT DOSE: 880.26 mGy.cm HISTORY: Acute lower abdominal pain with recent prostate biopsy Lower abd pain , fever. Recent prostate biopsy TECHNIQUE: Multiaxial CT images of the abdomen and pelvis were performed following the use of intravenous contrast. A dose lowering technique was utilized adhering to the principles of ALARA. COMPARISON STUDY: CT abdomen and pelvis 09/25/2015 FINDINGS: Lung bases are generally clear. No pneumatosis or pneumoperitoneum. Imaged inferior cardiac chambers demonstrate coronary arterial calcifications. Hepatic steatosis. Liver is otherwise unremarkable. No intrahepatic biliary ductal dilation. Spleen is enlarged, 16.2 cm. Patency of the hepatic and portal veins. The pancreas, gallbladder and adrenal glands are unremarkable. Mild nonspecific bilateral perinephric stranding. 4 mm nonobstructing calculus of the inferior pole right kidney. There are proximally 3 nonobstructing calculi noted about the left kidney measuring up to 4 mm. No ureteral calculi or obstructive uropathy. Mild wall thickening of the urinary bladder with partial distention. Prostamegaly with TURP hyperattenuation noted about the TURP defect. Moderate right and moderate to large left inguinal hernias, fat filled. Calcification of the aorta without aneurysm. IVC is unremarkable. No bowel obstruction. Mild colonic diverticulosis without acute diverticulitis. Linear hyperattenuating focus about the terminal ileum suggests a pill. Normal appendix. No bowel obstruction. Fat filled periumbilical hernia, diastases 2.1 cm. Mild nonspecific stranding about the rectum prosthetic distribution. Indeterminate mildly prominent lymph nodes are seen along the lateral anterior margin of the urinary bladder measuring up to 7 mm in short axis. Bones appear intact. No suspicious lytic or blastic bony lesions. Multilevel spondylitic spurring and facet arthrosis. Grade 1 anterolisthesis L4 on L5. IMPRESSION: 1. Prostatomegaly with TURP defect. Hyperattenuation about the TURP defect suggests hemorrhage at the biopsy site. 2. Mild wall thickening of the bladder with partial distention. Findings may reflect sequela of chronic bladder outlet obstruction or cystitis. Correlate with urinalysis. 3. Nonspecific mildly prominent perivesicular lymph nodes. 4. Colonic diverticulosis. 5. Hepatic steatosis. 6. Additional findings as above. Electronically signed by: Fazal Moore M.D. 02/10/2018 9:50 PM Dictated: 02/10/182141 Transcribed: 02/10/182141 _ (1) UTI (urinary tract infection) Encounter type: Hematuria presence: without hematuria Indwelling urinary catheter type: Urinary tract infection type: site unspecified Qualified Code( s): N39.0 - Urinary tract infection, site not specified
[2018-02-11] MEDS: INSULIN GLARGINE SOLOSTAR 100 UNITS/ML 3 ML PEN SC SCH (20:38)
--- NOTE | 2018-02-11 20:41 | Consultation Report ---
REASON FOR THE CONSULTATION: History of prostate biopsy with urosepsis and acute prostatitis. HISTORY OF PRESENTATION: The patient is a 62-year-old male with an elevated PSA who last Sunday had a transrectal ultrasound biopsy of his prostate. He was given Cipro preoperatively and his biopsies have returned positive for [id number] inflammation, which may be the cause of his infection as well as his elevated PSA. The patient had a biopsy on Sunday and was doing well until Sunday when he began to have chills and he came to the hospital later with severe chills and is being evaluated now after having been given Zosyn in the Emergency Room. He continues to have high fevers and chills and I am going to add gentamicin. The patient does have a history of diabetes and stone disease. CAT scan apparently did not show any obstructing stones. He denies any significant flank pain or difficulty voiding. He continues to have chills upstairs and feels weak. He was having some nausea, but apparently this has resolved. The patient has no known drug allergies. PAST MEDICAL HISTORY: Significant for recent prostate biopsy, history of stone procedures in the past and left knee surgery. MEDICATIONS: Include aspirin. He was on ciprofloxacin 500 mg b.i.d., hydrochlorothiazide 25 mg daily, metformin 1000 mg b.i.d., 1 g of fish oil daily, potassium citrate 50 mg p.o. daily. FAMILY HISTORY: Significant for diabetes and heart disease. He has no history of smoking or alcohol. He is . He lives with his . PHYSICAL EXAMINATION: GENERAL: The patient is a slightly overweight male in mild distress. VITAL SIGNS: His temperature recently was 39.2. His pulse was 106 and his blood pressure was within normal limits. HEENT: Unremarkable. NECK: Without any carotid bruits or JVD. He has no significant pedal edema. He is not in any respiratory distress. ABDOMEN: Somewhat distended with positive bowel sounds, soft, nontender. NEUROLOGIC: Cranial nerves II-XII are grossly intact and the patient is alert and oriented without obvious other sensory deficits. EXTREMITIES: Without erythema or edema. LABORATORY DATA: White blood cell count was within normal range. This morning it is just over 9000, although he did have an elevated lactic acid. Creatinine was 1.1. CT did show some prostatomegaly, some thickening of the bladder with partial distention, but no reported stones in the ureter. ASSESSMENT: Fever status post prostate biopsy. PLAN: Add gentamicin have discussed with pharmacy, pending blood culture reports which were initially positive to Unasyn and continue to observe the patient. We will let the patient eat. We will make n.p.o. after midnight in case he would need a TURP for abscess, which does not appear to have at this time, awaiting again culture results. We will allow this to monitor and decide future outpatient culture treatment. BRIAN
[2018-02-12] MEDS: PIPERACILLIN/TAZOBACTAM 3.375 GM in DEXTROSE 5% 100 ML IV SCH ×3 (02:20→18:12)
[2018-02-12] MEDS: SODIUM CHLORIDE 0.9% 1000ML 1,000 ML IV SCH ×3 (02:20→18:13)
[2018-02-12 06:24] LABS: Creatinine Clr Calc Pharmacy 79.7 ml/min; Est GFR (African American) 76.7; Est GFR (Non-African American) 66.2
[2018-02-12 08:47] LABS: Hematocrit (blood only) 37.9 % (42-52); Hemoglobin 13.3 g/dL (14.0-18.0); Mean Corpuscular Hgb Conc 35.1 g/dL (32-36); Mean Corpuscular Volume 86.7 fL (80-100); RDW Coefficient of Variation 12.7 % (11.5-14.5); Red Blood Count 4.37 M/uL (4.7-6.1); White Blood Count 7.82 K/uL (4.8-10.8)
[2018-02-12 09:06] LABS: BUN Creatinine Ratio 9.2 (10-20); Calcium 8.3 mg/dl (8.5-10.1); Creatinine Clr Calc Pharmacy 81.1 ml/min; Est GFR (African American) 78.3; Est GFR (Non-African American) 67.6; Magnesium 2.2 mg/dl (1.8-2.4); Potassium 3.7 mmol/L (3.5-5.1)
[2018-02-12 09:14] LABS: Basophils # (auto) 0.01 K/uL (0-0.2); Basophils % (auto) 0.1 %; Immature Granulocytes # (auto) 0.04 K/uL (0.00-0.02); Immature Granulocytes % (auto) 0.5 %; Lymphocytes # (auto) 0.45 K/uL (1.2-3.4); Lymphocytes % (auto) 5.8 %; Mean Platelet Volume 9.7 fL (7.4-10.4); Monocytes # (auto) 0.61 K/uL (0.11-0.59); Monocytes % (auto) 7.8 %; Neutrophils # (auto) 6.71 K/uL (1.4-6.5); Neutrophils % (auto) 85.8 %; Platelet Count 77 K/uL (130-400)
[2018-02-12] MEDS: INSULIN GLARGINE SOLOSTAR 100 UNITS/ML 3 ML PEN SC SCH ×2 (09:34→21:07)
[2018-02-12] MEDS: INSULIN ASPART 100 UNITS/ML 3 ML PEN SC SCH ×4 (09:36→21:10)
--- NOTE | 2018-02-12 10:01 | Pharmacy Report ---
Pharmacy Abx Dose Short Note - Date of Service February 12, 2018 - Assessment & Plan Assessment 62 year old M receiving Zosyn 3.375gm IV Q8 and Gentamicin 600mg IV Q24 for treatment of complicated UTI. Day # 3 of antimicrobial therapy. Renal function remains stable. 1/2 Blood cultures growing GNB, sensitivities pending. Urine cx growing e. coli; resistant to Gentamicin. Plan Gentamicin * Cultures sensitivities resulted today showing resistance to Gentimicin, medication has been discontinued. * Based on sensitivities would recommend Cefazolin for good gram negative coverage. Piperacillin/Tazobactam * Continue 3.375gm Q8 for CrCl greater than 20 mL/min. Pharmacy will continue to follow and will adjust dose/frequency as necessary. Thank you.
--- NOTE | 2018-02-12 11:54 | Urology Progress Note ---
Date of Service February 12, 2018 pt still feeling washed out. He is resistant to gentamycin . Will await ID input . Would recommend a month of antibiotic for prostate Pt to have regular diet . Physical Exam 2 Vital Signs (Past 24 Hours): Last Vital Signs Temp 38.2 C H 02/12/18 07:08 Pulse 92 H 02/12/18 07:08 Resp 18 02/12/18 07:08 BP 116/58 L 02/12/18 07:08 Pulse Ox 93 02/12/18 07:08
[2018-02-12] MEDS: ENOXAPARIN INJ 40 MG/0.4 ML SYR SQ SCH (13:28)
[2018-02-12] MEDS: ACETAMINOPHEN 325 MG TAB PO PRN (13:33)
--- NOTE | 2018-02-12 14:49 | Hospitalist Progress Note ---
Date of Service February 12, 2018 Assessment & Plan (1) Sepsis: Source is likely prostate infection status post biopsy and instrumentation last week. Vancomycin discontinued with cultures pointed towards a gram-negative source. Urine culture revealing E. coli with multidrug resistant including resistant to gentamicin. Gentamicin which was originally started yesterday for double coverage of gram-negative was stopped by urology today. Infectious diseases consulted and following. They stopped vancomycin yesterday. The patient is clinically improved today and is still receiving fluids as he is not reliably tolerating p.o. at this point. He is still intermittently febrile but shivers and chills have resolved. Hematuria is also improved. He was held n.p.o. after midnight for possible TURP if he did not improve clinically. This was not performed, and we will continue to treat the infection with Zosyn. (2) Acute prostatitis with hematuria: Status post prostate biopsy on Sunday, 02/10. Plan as above. Will lengthen time of abx to ensure prostate penetration. Appreciate ID recs. (3) Hypomagnesemia: Likely related to multiple episodes of diarrhea. Resolved this morning. (4) Diabetes mellitus, type 2: Glucose is more controlled after the addition of Lantus to insulin sliding scale with carb coverage. Continue current regimen and monitor glucose levels. (5) Hypertension: Holding HCTZ during sepsis resuscitation efforts. (6) DVT prophylaxis: Lovenox daily Full code Disposition-continue to monitor on telemetry. Expect to return home when medically stable. Gina Cheung DO [facility] hospitalist Subjective 62-year-old man who underwent prostate biopsy several days ago, presented with gram-negative sepsis with UTI/acute prostatitis as a source. Urology has decided against further intervention at this time. The patient is clinically improved. He reports resolution of shivers but is still febrile. He denies any nausea but is not feel like eating much at this point. He is requesting clear liquids. Physical Exam 2 Vital Signs (Past 24 Hours): Last Vital Signs Temp 36.8 C 02/12/18 14:47 Pulse 87 02/12/18 12:05 Resp 20 02/12/18 12:05 BP 114/58 L 02/12/18 12:05 Pulse Ox 95 02/12/18 12:05 CONSTITUTIONAL: WNWD, vitals as above, appears improved clinically. EYES: injected conjuctivae, no scleral icterus ENT: external ear and nose normal, MMM RESPIRATORY: clear to auscultation bilaterally, no crackles, rales or wheezes, normal respiratory effort CARDIOVASCULAR: regular rate and rhythm, S1 and 2 heard without murmurs, gallops or rubs, no JVD, no peripheral edema GASTROINTESTINAL: normal bowel sounds, soft, TTP in suprapubic>LLQ>RLQ but this is slightly less tender today. No epigastric or upper abdominal tenderness. No CVA tenderness MUSCULOSKELETAL: strength 5/5 throughout, head is normocephalic and atraumatic SKIN: warm and dry NEUROLOGIC: No facial palsy, no dysarthria. CN 2-12 grossly intact, normal cognition, normal speech, no tremor PSYCHIATRIC: alert cooperative and oriented to person, place and time. Results & Data Laboratory Results Short CBC 02/12/18 Range/Units 08:24 WBC 7.82 (4.8-10.8) K/uL Hgb 13.3 L (14.0-18.0) g/dL Hct 37.9 L (42-52) % Plt Count 77 L (130-400) K/uL BMP 02/12/18 02/12/18 05:20 08:24 Sodium 136 Potassium 3.7 Chloride 104 Carbon Dioxide 26 BUN 11 Creatinine 1.18 1.16 Glucose 187 H Calcium 8.3 L Medications Administered Current Inpatient Medications Acetaminophen (Tylenol) 650 mg PO Q4H PRN PRN Reason: Pain or Fever Stop: 03/13/18 00:09 Last Admin: 02/12/18 13:33 Dose: 650 mg Dextrose (Dextrose 50%) 25 - 50 ml IV UD PRN; Protocol PRN Reason: Hypoglycemia Protocol Stop: 03/13/18 00:24 Enoxaparin Sodium (Lovenox) 40 mg SQ DAILY@1200 ROB Stop: 03/13/18 11:59 Last Admin: 02/12/18 13:28 Dose: 40 mg Glucagon (Glucagen) 1 mg SQ UD PRN; Protocol PRN Reason: Hypoglycemia Protocol Stop: 03/13/18 00:24 Glucose (Glucose 40%) 15 - 30 gm PO UD PRN; Protocol PRN Reason: Hypoglycemia Protocol Stop: 03/13/18 00:24 Glucose (Dex4 Glucose) 4 - 8 tabs PO UD PRN; Protocol PRN Reason: Hypoglycemia Protocol Stop: 03/13/18 00:24 Sodium Chloride (Nss 1000ml) 1,000 mls @ 150 mls/hr IV .Q6H40M [facility] Stop: 03/13/18 00:09 Last Admin: 02/12/18 08:40 Dose: 150 mls/hr Piperacillin Sod/Tazobactam (Sod 3.375 gm/ Dextrose) 115 mls @ 30 mls/hr IV Q8H [facility] Stop: 02/21/18 01:59 Last Infusion: 02/12/18 12:40 Dose: Infused Insulin Aspart (Novolog Flexpen) 0 units SC ACHS [facility] Stop: 03/13/18 07:29 Last Admin: 02/12/18 13:27 Dose: Not Given Insulin Glargine (Lantus Solostar Pen) 10 units SC Q12H [facility] Stop: 03/13/18 20:59 Last Admin: 02/12/18 09:34 Dose: 10 units Miscellaneous (Carbohydrates For Hypoglycemia) 15 - 30 gm PO UD PRN PRN Reason: Hypoglycemia Treatment Stop: 03/13/18 00:24 Miscellaneous Information (Consult) 1 ea N/A UD PRN PRN Reason: Consult Stop: 03/13/18 00:09 Nitroglycerin (Nitrostat) 0.4 mg SL UD PRN PRN Reason: Chest Pain Stop: 03/13/18 00:09 Ondansetron HCl (Zofran) 4 mg IV Q6H PRN PRN Reason: Nausea Stop: 03/13/18 00:09
[2018-02-12 23:23] LABS: BUN Creatinine Ratio 10.6 (10-20); Calcium 8.2 mg/dl (8.5-10.1); Creatinine Clr Calc Pharmacy 81.8 ml/min; Est GFR (African American) 79.2; Est GFR (Non-African American) 68.3; Potassium 3.5 mmol/L (3.5-5.1)
[2018-02-13] MEDS: ACETAMINOPHEN 325 MG TAB PO PRN (00:04)
[2018-02-13] MEDS: SODIUM CHLORIDE 0.9% 1000ML 1,000 ML IV SCH ×2 (00:04→12:41)
[2018-02-13] MEDS: PIPERACILLIN/TAZOBACTAM 3.375 GM in DEXTROSE 5% 100 ML IV SCH ×3 (01:59→18:00)
[2018-02-13 06:10] LABS: Basophils # (auto) 0.02 K/uL (0-0.2); Basophils % (auto) 0.3 %; Eosinophils # (auto) 0.04 K/uL (0-0.5); Eosinophils % (auto) 0.6 %; Immature Granulocytes # (auto) 0.03 K/uL (0.00-0.02); Immature Granulocytes % (auto) 0.5 %; Lymphocytes # (auto) 0.81 K/uL (1.2-3.4); Lymphocytes % (auto) 12.9 %; Mean Corpuscular Hgb Conc 35.1 g/dL (32-36); Mean Corpuscular Volume 87.3 fL (80-100); Mean Platelet Volume 9.5 fL (7.4-10.4); Monocytes # (auto) 0.77 K/uL (0.11-0.59); Monocytes % (auto) 12.2 %; Neutrophils # (auto) 4.63 K/uL (1.4-6.5); Neutrophils % (auto) 73.5 %; Platelet Count 103 K/uL (130-400); RDW Coefficient of Variation 12.9 % (11.5-14.5); RDW Standard Deviation 41.4 fL (36.4-46.3); Red Blood Count 4.24 M/uL (4.7-6.1)
[2018-02-13 06:42] LABS: BUN Creatinine Ratio 11.4 (10-20); Calcium 8.3 mg/dl (8.5-10.1); Creatinine Clr Calc Pharmacy 84.9 ml/min; Est GFR (African American) 81.7; Est GFR (Non-African American) 70.5; Potassium 3.4 mmol/L (3.5-5.1)
[2018-02-13] MEDS ORDERED: POTASSIUM CHLORIDE 20 MEQ TABCR PO ONE (08:09)
[2018-02-13] MEDS: INSULIN ASPART 100 UNITS/ML 3 ML PEN SC SCH ×4 (08:18→21:04)
[2018-02-13] MEDS: INSULIN GLARGINE SOLOSTAR 100 UNITS/ML 3 ML PEN SC SCH ×2 (08:19→21:05)
[2018-02-13 10:15] LABS: Toxic Granulation 1+; Toxic Vacuolation 1+
[2018-02-13 10:16] LABS: Dohle Bodies 1+
[2018-02-13] MEDS: ENOXAPARIN INJ 40 MG/0.4 ML SYR SQ SCH (12:07)
--- NOTE | 2018-02-13 12:55 | Urology Progress Note ---
Date of Service February 13, 2018 Follow-up as outpatient. Continue antibiotics for at least 3-4 weeks. Subjective Patient feels markedly better today. No chills. Still has intermittent gross hematuria. Reassured him that this is not of concern after prostate biopsy. Patient will receive another 24 hours antibiotics with 1 to be at least on antibiotic for another 3 weeks as an outpatient. Pending what ID recommends would feel the Keflex is probably the only p.o. option available. We will see patient as an outpatient next week. Physical Exam 2 Vital Signs (Past 24 Hours): Last Vital Signs Temp 37.2 C 02/13/18 11:07 Pulse 77 02/13/18 11:07 Resp 20 02/13/18 11:07 BP 123/64 02/13/18 11:07 Pulse Ox 96 02/13/18 11:07
--- NOTE | 2018-02-13 15:09 | Hospitalist Progress Note ---
Date of Service February 13, 2018 Assessment & Plan (1) Sepsis: Source is likely prostate infection status post biopsy and instrumentation last week. Vancomycin discontinued with cultures pointed towards a gram-negative source. Urine culture revealing E. coli with multidrug resistant including resistant to gentamicin. Gentamicin which was originally started for double coverage of gram-negative was stopped. Infectious diseases consulted and following. He continues to clinically improve. He has been afebrile overnight with resolution of chills. He is reliably tolerating p.o. at this point and is starting to ambulate. Appreciate ID recommendations for definitive antibiotic therapy. (2) Acute prostatitis with hematuria: Status post prostate biopsy on Sunday, 02/10. Plan as above. Will lengthen time of abx to ensure prostate penetration. Appreciate ID recs. (3) Diabetes mellitus, type 2: Continue current insulin use with good control. (4) Diarrhea: Stool studies are negative for C. difficile in setting of recent antibiotic use. Patient states he is not having efe watery diarrhea only some loose stools without blood in them. We will continue to monitor closely, hydrate as needed and replace electrolytes as needed (5) Hypertension: Holding HCTZ during sepsis resuscitation efforts. Blood pressure currently at goal. (6) DVT prophylaxis: Lovenox daily Full code Disposition-continue to monitor on telemetry. Expect to return home when medically stable. Gina Cheung DO [facility] hospitalist Subjective 62-year-old man presented with gram-negative bacteremia and sepsis status post prostate biopsy late last week. After broad-spectrum antibiotics and IV fluids the patient is clinically much better today. He is tolerating p.o., ambulating at baseline, and relatively asymptomatic. No fevers overnight. Telemetry was reviewed and revealed an hour and a half of a multifocal atrial tachycardia. This was reviewed with cardiology to ensure accuracy. Patient reports some frequent loose stools that are not described as efe watery diarrhea. He denies any blood per rectum. Physical Exam 2 Vital Signs (Past 24 Hours): Last Vital Signs Temp 37.2 C 02/13/18 11:07 Pulse 77 02/13/18 11:07 Resp 20 02/13/18 11:07 BP 123/64 02/13/18 11:07 Pulse Ox 96 02/13/18 11:07 CONSTITUTIONAL: WNWD, vitals as above, appears improved clinically. EYES: Normal conjuctivae, no scleral icterus ENT: external ear and nose normal, MMM RESPIRATORY: clear to auscultation bilaterally, no crackles, rales or wheezes, normal respiratory effort CARDIOVASCULAR: regular rate and rhythm, S1 and 2 heard without murmurs, gallops or rubs, no JVD, no peripheral edema GASTROINTESTINAL: normal bowel sounds, soft, nontender. No epigastric or upper abdominal tenderness. No CVA tenderness MUSCULOSKELETAL: strength 5/5 throughout, head is normocephalic and atraumatic SKIN: warm and dry NEUROLOGIC: No facial palsy, no dysarthria. CN 2-12 grossly intact, normal cognition, normal speech, no tremor PSYCHIATRIC: alert cooperative and oriented to person, place and time. Results & Data Laboratory Results Short CBC 02/10/18 02/10/18 02/10/18 Range/Units 19:45 20:10 20:10 WBC (4.8-10.8) K/uL RBC 5.22 (4.7-6.1) M/uL Hgb (14.0-18.0) g/dL Hct (42-52) % MCV 87.2 (80-100) fL MCH 31.4 (25-34) pg MCHC 36.0 (32-36) g/dL RDW Std Deviation 40.7 (36.4-46.3) fL RDW Coeff of Lilian 12.7 (11.5-14.5) % Plt Count (130-400) K/uL MPV 9.3 (7.4-10.4) fL Immature Gran % (Auto) 0.4 % Neut % (Auto) 89.7 % Lymph % (Auto) 4.9 % [place] % (Auto) 4.9 % Eos % (Auto) 0.0 % Baso % (Auto) 0.1 % Immature Gran # (Auto) 0.03 H (0.00-0.02) K/uL Neut # (Auto) 7.54 H (1.4-6.5) K/uL Lymph # (Auto) 0.41 L (1.2-3.4) K/uL [place] # (Auto) 0.41 (0.11-0.59) K/uL Eos # (Auto) 0.00 (0-0.5) K/uL Baso # (Auto) 0.01 (0-0.2) K/uL Toxic Granulation Toxic Vacuolation Dohle Bodies Platelet Estimate (Normal) Sodium (136-145) mmol/L Potassium (3.5-5.1) mmol/L Chloride (98-107) mmol/L Carbon Dioxide (21-32) mmol/L Anion Gap (3-11) BUN (7-18) mg/dl Creatinine (0.6-1.4) mg/dl Est Cr Clr Drug Dosing ml/min Est GFR ( Amer) Est GFR (Non-Af Amer) BUN/Creatinine Ratio (10-20) Glucose (70-99) mg/dl POC Glucose (70-99) Estimat Average Glucose mg/dl Hemoglobin A1c (4.5-5.6) % Lactate (0.4-2.0) mmol/L Calcium (8.5-10.1) mg/dl Magnesium (1.8-2.4) mg/dl Total Bilirubin (0.2-1) mg/dl Direct Bilirubin (0-0.2) mg/dl AST (15-37) U/L ALT (12-78) U/L Alkaline Phosphatase (45-117) U/L Total Protein (6.4-8.2) gm/dl Albumin (3.4-5.0) gm/dl Globulin (2.5-4.0) gm/dl Albumin/Globulin Ratio (0.9-2) Procalcitonin 1.78 H (0-0.5) ng/ml Urine Color Dark Yellow Urine Appearance Cloudy H (Clear) Urine pH 5.0 (4.5-7.5) Ur Specific [place] 1.023 (1.000-1.030) Urine Protein 1+ H (Negative) Urine Glucose (UA) Trace H (Negative) Urine Ketones Trace H (Negative) Urine Blood 3+ H (Negative) Urine Nitrite Positive H (Negative) Urine Bilirubin Negative (Negative) Urine Urobilinogen Negative (Negative) Ur Leukocyte Esterase 1+ H (Negative) Urine WBC (Auto) >30 H (0-5) /hpf Urine RBC (Auto) >30 H (0-4) /hpf U Hyaline Cast (Auto) 1-5 (0-5) /lpf U Epithel Cells (Auto) 0-5 (0-5) /lpf Urine Bacteria (Auto) 1+ H (Negative) Stl C. diff Tox B Gene (Neg) Random Gentamicin mcg/ml 02/10/18 02/11/18 02/11/18 Range/Units 20:10 00:25 05:18 WBC (4.8-10.8) K/uL RBC 5.01 (4.7-6.1) M/uL Hgb (14.0-18.0) g/dL Hct (42-52) % MCV 88.4 (80-100) fL MCH 31.1 (25-34) pg MCHC 35.2 (32-36) g/dL RDW Std Deviation 40.9 (36.4-46.3) fL RDW Coeff of Lilian 12.7 (11.5-14.5) % Plt Count (130-400) K/uL MPV 9.1 (7.4-10.4) fL Immature Gran % (Auto) 0.5 % Neut % (Auto) 91.1 % Lymph % (Auto) 4.0 % [place] % (Auto) 4.3 % Eos % (Auto) 0.0 % Baso % (Auto) 0.1 % Immature Gran # (Auto) 0.05 H (0.00-0.02) K/uL Neut # (Auto) 8.56 H (1.4-6.5) K/uL Lymph # (Auto) 0.38 L (1.2-3.4) K/uL [place] # (Auto) 0.40 (0.11-0.59) K/uL Eos # (Auto) 0.00 (0-0.5) K/uL Baso # (Auto) 0.01 (0-0.2) K/uL Toxic Granulation Toxic Vacuolation Dohle Bodies Platelet Estimate (Normal) Sodium 131 L (136-145) mmol/L Potassium 3.5 (3.5-5.1) mmol/L Chloride 96 L (98-107) mmol/L Carbon Dioxide 24 (21-32) mmol/L Anion Gap 11.0 (3-11) BUN 9 (7-18) mg/dl Creatinine 1.13 (0.6-1.4) mg/dl Est Cr Clr Drug Dosing 84.0 ml/min Est GFR ( Amer) 80.9 Est GFR (Non-Af Amer) 69.8 BUN/Creatinine Ratio 8.2 L (10-20) Glucose 182 H (70-99) mg/dl POC Glucose (70-99) Estimat Average Glucose mg/dl Hemoglobin A1c (4.5-5.6) % Lactate 2.2 H* (0.4-2.0) mmol/L Calcium 9.1 (8.5-10.1) mg/dl Magnesium (1.8-2.4) mg/dl Total Bilirubin 1.5 H (0.2-1) mg/dl Direct Bilirubin (0-0.2) mg/dl AST 26 (15-37) U/L ALT 51 (12-78) U/L Alkaline Phosphatase 65 (45-117) U/L Total Protein 7.7 (6.4-8.2) gm/dl Albumin 3.9 (3.4-5.0) gm/dl Globulin 3.8 (2.5-4.0) gm/dl Albumin/Globulin Ratio 1.0 (0.9-2) Procalcitonin (0-0.5) ng/ml Urine Color Urine Appearance (Clear) Urine pH (4.5-7.5) Ur Specific [place] (1.000-1.030) Urine Protein (Negative) Urine Glucose (UA) (Negative) Urine Ketones (Negative) Urine Blood (Negative) Urine Nitrite (Negative) Urine Bilirubin (Negative) Urine Urobilinogen (Negative) Ur Leukocyte Esterase (Negative) Urine WBC (Auto) (0-5) /hpf Urine RBC (Auto) (0-4) /hpf U Hyaline Cast (Auto) (0-5) /lpf U Epithel Cells (Auto) (0-5) /lpf Urine Bacteria (Auto) (Negative) Stl C. diff Tox B Gene (Neg) Random Gentamicin mcg/ml 02/11/18 02/11/18 02/11/18 Range/Units 05:18 05:18 05:21 WBC (4.8-10.8) K/uL RBC (4.7-6.1) M/uL Hgb (14.0-18.0) g/dL Hct (42-52) % MCV (80-100) fL MCH (25-34) pg MCHC (32-36) g/dL RDW Std Deviation (36.4-46.3) fL RDW Coeff of Lilian (11.5-14.5) % Plt Count (130-400) K/uL MPV (7.4-10.4) fL Immature Gran % (Auto) % Neut % (Auto) % Lymph % (Auto) % [place] % (Auto) % Eos % (Auto) % Baso % (Auto) % Immature Gran # (Auto) (0.00-0.02) K/uL Neut # (Auto) (1.4-6.5) K/uL Lymph # (Auto) (1.2-3.4) K/uL [place] # (Auto) (0.11-0.59) K/uL Eos # (Auto) (0-0.5) K/uL Baso # (Auto) (0-0.2) K/uL Toxic Granulation Toxic Vacuolation Dohle Bodies Platelet Estimate (Normal) Sodium 134 L (136-145) mmol/L Potassium 3.8 (3.5-5.1) mmol/L Chloride 98 (98-107) mmol/L Carbon Dioxide 29 (21-32) mmol/L Anion Gap 7.0 (3-11) BUN 9 (7-18) mg/dl Creatinine 1.17 (0.6-1.4) mg/dl Est Cr Clr Drug Dosing 80.4 ml/min Est GFR ( Amer) 77.5 Est GFR (Non-Af Amer) 66.9 BUN/Creatinine Ratio 7.3 L (10-20) Glucose 205 H (70-99) mg/dl POC Glucose (70-99) Estimat Average Glucose 171 mg/dl Hemoglobin A1c 7.6 H (4.5-5.6) % Lactate 2.3 H* (0.4-2.0) mmol/L Calcium 8.7 (8.5-10.1) mg/dl Magnesium 1.4 L (1.8-2.4) mg/dl Total Bilirubin 1.6 H (0.2-1) mg/dl Direct Bilirubin 0.6 H (0-0.2) mg/dl AST 24 (15-37) U/L ALT 40 (12-78) U/L Alkaline Phosphatase 60 (45-117) U/L Total Protein 7.1 (6.4-8.2) gm/dl Albumin 3.4 (3.4-5.0) gm/dl Globulin (2.5-4.0) gm/dl Albumin/Globulin Ratio (0.9-2) Procalcitonin (0-0.5) ng/ml Urine Color Urine Appearance (Clear) Urine pH (4.5-7.5) Ur Specific [place] (1.000-1.030) Urine Protein (Negative) Urine Glucose (UA) (Negative) Urine Ketones (Negative) Urine Blood (Negative) Urine Nitrite (Negative) Urine Bilirubin (Negative) Urine Urobilinogen (Negative) Ur Leukocyte Esterase (Negative) Urine WBC (Auto) (0-5) /hpf Urine RBC (Auto) (0-4) /hpf U Hyaline Cast (Auto) (0-5) /lpf U Epithel Cells (Auto) (0-5) /lpf Urine Bacteria (Auto) (Negative) Stl C. diff Tox B Gene (Neg) Random Gentamicin mcg/ml 02/11/18 02/11/18 02/11/18 Range/Units 07:08 11:20 11:40 WBC (4.8-10.8) K/uL RBC (4.7-6.1) M/uL Hgb (14.0-18.0) g/dL Hct (42-52) % MCV (80-100) fL MCH (25-34) pg MCHC (32-36) g/dL RDW Std Deviation (36.4-46.3) fL RDW Coeff of Lliian (11.5-14.5) % Plt Count (130-400) K/uL MPV (7.4-10.4) fL Immature Gran % (Auto) % Neut % (Auto) % Lymph % (Auto) % [place] % (Auto) % Eos % (Auto) % Baso % (Auto) % Immature Gran # (Auto) (0.00-0.02) K/uL Neut # (Auto) (1.4-6.5) K/uL Lymph # (Auto) (1.2-3.4) K/uL [place] # (Auto) (0.11-0.59) K/uL Eos # (Auto) (0-0.5) K/uL Baso # (Auto) (0-0.2) K/uL Toxic Granulation Toxic Vacuolation Dohle Bodies Platelet Estimate (Normal) Sodium (136-145) mmol/L Potassium (3.5-5.1) mmol/L Chloride (98-107) mmol/L Carbon Dioxide (21-32) mmol/L Anion Gap (3-11) BUN (7-18) mg/dl Creatinine (0.6-1.4) mg/dl Est Cr Clr Drug Dosing ml/min Est GFR ( Amer) Est GFR (Non-Af Amer) BUN/Creatinine Ratio (10-20) Glucose (70-99) mg/dl POC Glucose 210 H 210 H (70-99) Estimat Average Glucose mg/dl Hemoglobin A1c (4.5-5.6) % Lactate 2.1 H* (0.4-2.0) mmol/L Calcium (8.5-10.1) mg/dl Magnesium (1.8-2.4) mg/dl Total Bilirubin (0.2-1) mg/dl Direct Bilirubin (0-0.2) mg/dl AST (15-37) U/L ALT (12-78) U/L Alkaline Phosphatase (45-117) U/L Total Protein (6.4-8.2) gm/dl Albumin (3.4-5.0) gm/dl Globulin (2.5-4.0) gm/dl Albumin/Globulin Ratio (0.9-2) Procalcitonin (0-0.5) ng/ml Urine Color Urine Appearance (Clear) Urine pH (4.5-7.5) Ur Specific [place] (1.000-1.030) Urine Protein (Negative) Urine Glucose (UA) (Negative) Urine Ketones (Negative) Urine Blood (Negative) Urine Nitrite (Negative) Urine Bilirubin (Negative) Urine Urobilinogen (Negative) Ur Leukocyte Esterase (Negative) Urine WBC (Auto) (0-5) /hpf Urine RBC (Auto) (0-4) /hpf U Hyaline Cast (Auto) (0-5) /lpf U Epithel Cells (Auto) (0-5) /lpf Urine Bacteria (Auto) (Negative) Stl C. diff Tox B Gene (Neg) Random Gentamicin mcg/ml 02/11/18 02/11/18 02/11/18 Range/Units 16:29 20:31 21:58 WBC (4.8-10.8) K/uL RBC (4.7-6.1) M/uL Hgb (14.0-18.0) g/dL Hct (42-52) % MCV (80-100) fL MCH (25-34) pg MCHC (32-36) g/dL RDW Std Deviation (36.4-46.3) fL RDW Coeff of Lilian (11.5-14.5) % Plt Count (130-400) K/uL MPV (7.4-10.4) fL Immature Gran % (Auto) % Neut % (Auto) % Lymph % (Auto) % [place] % (Auto) % Eos % (Auto) % Baso % (Auto) % Immature Gran # (Auto) (0.00-0.02) K/uL Neut # (Auto) (1.4-6.5) K/uL Lymph # (Auto) (1.2-3.4) K/uL [place] # (Auto) (0.11-0.59) K/uL Eos # (Auto) (0-0.5) K/uL Baso # (Auto) (0-0.2) K/uL Toxic Granulation Toxic Vacuolation Dohle Bodies Platelet Estimate (Normal) Sodium (136-145) mmol/L Potassium (3.5-5.1) mmol/L Chloride (98-107) mmol/L Carbon Dioxide (21-32) mmol/L Anion Gap (3-11) BUN (7-18) mg/dl Creatinine (0.6-1.4) mg/dl Est Cr Clr Drug Dosing ml/min Est GFR ( Amer) Est GFR (Non-Af Amer) BUN/Creatinine Ratio (10-20) Glucose (70-99) mg/dl POC Glucose 241 H 268 H (70-99) Estimat Average Glucose mg/dl Hemoglobin A1c (4.5-5.6) % Lactate (0.4-2.0) mmol/L Calcium (8.5-10.1) mg/dl Magnesium (1.8-2.4) mg/dl Total Bilirubin (0.2-1) mg/dl Direct Bilirubin (0-0.2) mg/dl AST (15-37) U/L ALT (12-78) U/L Alkaline Phosphatase (45-117) U/L Total Protein (6.4-8.2) gm/dl Albumin (3.4-5.0) gm/dl Globulin (2.5-4.0) gm/dl Albumin/Globulin Ratio (0.9-2) Procalcitonin (0-0.5) ng/ml Urine Color Urine Appearance (Clear) Urine pH (4.5-7.5) Ur Specific [place] (1.000-1.030) Urine Protein (Negative) Urine Glucose (UA) (Negative) Urine Ketones (Negative) Urine Blood (Negative) Urine Nitrite (Negative) Urine Bilirubin (Negative) Urine Urobilinogen (Negative) Ur Leukocyte Esterase (Negative) Urine WBC (Auto) (0-5) /hpf Urine RBC (Auto) (0-4) /hpf U Hyaline Cast (Auto) (0-5) /lpf U Epithel Cells (Auto) (0-5) /lpf Urine Bacteria (Auto) (Negative) Stl C. diff Tox B Gene (Neg) Random Gentamicin 3.90 mcg/ml 02/12/18 02/12/18 02/12/18 Range/Units 05:20 08:24 08:24 WBC (4.8-10.8) K/uL RBC 4.37 L (4.7-6.1) M/uL Hgb (14.0-18.0) g/dL Hct (42-52) % MCV 86.7 (80-100) fL MCH 30.4 (25-34) pg MCHC 35.1 (32-36) g/dL RDW Std Deviation 41.0 (36.4-46.3) fL RDW Coeff of Lilian 12.7 (11.5-14.5) % Plt Count (130-400) K/uL MPV 9.7 (7.4-10.4) fL Immature Gran % (Auto) 0.5 % Neut % (Auto) 85.8 % Lymph % (Auto) 5.8 % [place] % (Auto) 7.8 % Eos % (Auto) 0.0 % Baso % (Auto) 0.1 % Immature Gran # (Auto) 0.04 H (0.00-0.02) K/uL Neut # (Auto) 6.71 H (1.4-6.5) K/uL Lymph # (Auto) 0.45 L (1.2-3.4) K/uL [place] # (Auto) 0.61 H (0.11-0.59) K/uL Eos # (Auto) 0.00 (0-0.5) K/uL Baso # (Auto) 0.01 (0-0.2) K/uL Toxic Granulation 1+ Toxic Vacuolation 1+ Dohle Bodies 1+ Platelet Estimate Decreased (Normal) Sodium 136 (136-145) mmol/L Potassium 3.7 (3.5-5.1) mmol/L Chloride 104 (98-107) mmol/L Carbon Dioxide 26 (21-32) mmol/L Anion Gap 7.0 (3-11) BUN 11 (7-18) mg/dl Creatinine 1.18 1.16 (0.6-1.4) mg/dl Est Cr Clr Drug Dosing 79.7 81.1 ml/min Est GFR ( Amer) 76.7 78.3 Est GFR (Non-Af Amer) 66.2 67.6 BUN/Creatinine Ratio 9.2 L (10-20) Glucose 187 H (70-99) mg/dl POC Glucose (70-99) Estimat Average Glucose mg/dl Hemoglobin A1c (4.5-5.6) % Lactate (0.4-2.0) mmol/L Calcium 8.3 L (8.5-10.1) mg/dl Magnesium 2.2 (1.8-2.4) mg/dl Total Bilirubin (0.2-1) mg/dl Direct Bilirubin (0-0.2) mg/dl AST (15-37) U/L ALT (12-78) U/L Alkaline Phosphatase (45-117) U/L Total Protein (6.4-8.2) gm/dl Albumin (3.4-5.0) gm/dl Globulin (2.5-4.0) gm/dl Albumin/Globulin Ratio (0.9-2) Procalcitonin (0-0.5) ng/ml Urine Color Urine Appearance (Clear) Urine pH (4.5-7.5) Ur Specific [place] (1.000-1.030) Urine Protein (Negative) Urine Glucose (UA) (Negative) Urine Ketones (Negative) Urine Blood (Negative) Urine Nitrite (Negative) Urine Bilirubin (Negative) Urine Urobilinogen (Negative) Ur Leukocyte Esterase (Negative) Urine WBC (Auto) (0-5) /hpf Urine RBC (Auto) (0-4) /hpf U Hyaline Cast (Auto) (0-5) /lpf U Epithel Cells (Auto) (0-5) /lpf Urine Bacteria (Auto) (Negative) Stl C. diff Tox B Gene (Neg) Random Gentamicin mcg/ml 02/12/18 02/12/18 02/12/18 Range/Units 11:31 16:08 20:25 WBC (4.8-10.8) K/uL RBC (4.7-6.1) M/uL Hgb (14.0-18.0) g/dL Hct (42-52) % MCV (80-100) fL MCH (25-34) pg MCHC (32-36) g/dL RDW Std Deviation (36.4-46.3) fL RDW Coeff of Lilian (11.5-14.5) % Plt Count (130-400) K/uL MPV (7.4-10.4) fL Immature Gran % (Auto) % Neut % (Auto) % Lymph % (Auto) % [place] % (Auto) % Eos % (Auto) % Baso % (Auto) % Immature Gran # (Auto) (0.00-0.02) K/uL Neut # (Auto) (1.4-6.5) K/uL Lymph # (Auto) (1.2-3.4) K/uL [place] # (Auto) (0.11-0.59) K/uL Eos # (Auto) (0-0.5) K/uL Baso # (Auto) (0-0.2) K/uL Toxic Granulation Toxic Vacuolation Dohle Bodies Platelet Estimate (Normal) Sodium (136-145) mmol/L Potassium (3.5-5.1) mmol/L Chloride (98-107) mmol/L Carbon Dioxide (21-32) mmol/L Anion Gap (3-11) BUN (7-18) mg/dl Creatinine (0.6-1.4) mg/dl Est Cr Clr Drug Dosing ml/min Est GFR ( Amer) Est GFR (Non-Af Amer) BUN/Creatinine Ratio (10-20) Glucose (70-99) mg/dl POC Glucose 160 H 148 H 167 H (70-99) Estimat Average Glucose mg/dl Hemoglobin A1c (4.5-5.6) % Lactate (0.4-2.0) mmol/L Calcium (8.5-10.1) mg/dl Magnesium (1.8-2.4) mg/dl Total Bilirubin (0.2-1) mg/dl Direct Bilirubin (0-0.2) mg/dl AST (15-37) U/L ALT (12-78) U/L Alkaline Phosphatase (45-117) U/L Total Protein (6.4-8.2) gm/dl Albumin (3.4-5.0) gm/dl Globulin (2.5-4.0) gm/dl Albumin/Globulin Ratio (0.9-2) Procalcitonin (0-0.5) ng/ml Urine Color Urine Appearance (Clear) Urine pH (4.5-7.5) Ur Specific [place] (1.000-1.030) Urine Protein (Negative) Urine Glucose (UA) (Negative) Urine Ketones (Negative) Urine Blood (Negative) Urine Nitrite (Negative) Urine Bilirubin (Negative) Urine Urobilinogen (Negative) Ur Leukocyte Esterase (Negative) Urine WBC (Auto) (0-5) /hpf Urine RBC (Auto) (0-4) /hpf U Hyaline Cast (Auto) (0-5) /lpf U Epithel Cells (Auto) (0-5) /lpf Urine Bacteria (Auto) (Negative) Stl C. diff Tox B Gene (Neg) Random Gentamicin mcg/ml 02/12/18 02/13/18 02/13/18 Range/Units 22:54 05:50 05:50 WBC 6.30 (4.8-10.8) K/uL RBC 4.24 L (4.7-6.1) M/uL Hgb 13.0 L (14.0-18.0) g/dL Hct 37.0 L (42-52) % MCV 87.3 (80-100) fL MCH 30.7 (25-34) pg MCHC 35.1 (32-36) g/dL RDW Std Deviation 41.4 (36.4-46.3) fL RDW Coeff of Lilian 12.9 (11.5-14.5) % Plt Count 103 L (130-400) K/uL MPV 9.5 (7.4-10.4) fL Immature Gran % (Auto) 0.5 % Neut % (Auto) 73.5 % Lymph % (Auto) 12.9 % [place] % (Auto) 12.2 % Eos % (Auto) 0.6 % Baso % (Auto) 0.3 % Immature Gran # (Auto) 0.03 H (0.00-0.02) K/uL Neut # (Auto) 4.63 (1.4-6.5) K/uL Lymph # (Auto) 0.81 L (1.2-3.4) K/uL [place] # (Auto) 0.77 H (0.11-0.59) K/uL Eos # (Auto) 0.04 (0-0.5) K/uL Baso # (Auto) 0.02 (0-0.2) K/uL Toxic Granulation Toxic Vacuolation Dohle Bodies Platelet Estimate (Normal) Sodium 140 139 (136-145) mmol/L Potassium 3.5 3.4 L (3.5-5.1) mmol/L Chloride 106 106 (98-107) mmol/L Carbon Dioxide 30 27 (21-32) mmol/L Anion Gap 4.0 7.0 (3-11) BUN 12 13 (7-18) mg/dl Creatinine 1.15 1.12 (0.6-1.4) mg/dl Est Cr Clr Drug Dosing 81.8 84.9 ml/min Est GFR ( Amer) 79.2 81.7 Est GFR (Non-Af Amer) 68.3 70.5 BUN/Creatinine Ratio 10.6 11.4 (10-20) Glucose 149 H 149 H (70-99) mg/dl POC Glucose (70-99) Estimat Average Glucose mg/dl Hemoglobin A1c (4.5-5.6) % Lactate (0.4-2.0) mmol/L Calcium 8.2 L 8.3 L (8.5-10.1) mg/dl Magnesium 2.0 (1.8-2.4) mg/dl Total Bilirubin (0.2-1) mg/dl Direct Bilirubin (0-0.2) mg/dl AST (15-37) U/L ALT (12-78) U/L Alkaline Phosphatase (45-117) U/L Total Protein (6.4-8.2) gm/dl Albumin (3.4-5.0) gm/dl Globulin (2.5-4.0) gm/dl Albumin/Globulin Ratio (0.9-2) Procalcitonin (0-0.5) ng/ml Urine Color Urine Appearance (Clear) Urine pH (4.5-7.5) Ur Specific [place] (1.000-1.030) Urine Protein (Negative) Urine Glucose (UA) (Negative) Urine Ketones (Negative) Urine Blood (Negative) Urine Nitrite (Negative) Urine Bilirubin (Negative) Urine Urobilinogen (Negative) Ur Leukocyte Esterase (Negative) Urine WBC (Auto) (0-5) /hpf Urine RBC (Auto) (0-4) /hpf U Hyaline Cast (Auto) (0-5) /lpf U Epithel Cells (Auto) (0-5) /lpf Urine Bacteria (Auto) (Negative) Stl C. diff Tox B Gene (Neg) Random Gentamicin mcg/ml 02/13/18 02/13/18 02/13/18 Range/Units 07:20 11:13 15:10 WBC (4.8-10.8) K/uL RBC (4.7-6.1) M/uL Hgb (14.0-18.0) g/dL Hct (42-52) % MCV (80-100) fL MCH (25-34) pg MCHC (32-36) g/dL RDW Std Deviation (36.4-46.3) fL RDW Coeff of Lilian (11.5-14.5) % Plt Count (130-400) K/uL MPV (7.4-10.4) fL Immature Gran % (Auto) % Neut % (Auto) % Lymph % (Auto) % [place] % (Auto) % Eos % (Auto) % Baso % (Auto) % Immature Gran # (Auto) (0.00-0.02) K/uL Neut # (Auto) (1.4-6.5) K/uL Lymph # (Auto) (1.2-3.4) K/uL [place] # (Auto) (0.11-0.59) K/uL Eos # (Auto) (0-0.5) K/uL Baso # (Auto) (0-0.2) K/uL Toxic Granulation Toxic Vacuolation Dohle Bodies Platelet Estimate (Normal) Sodium (136-145) mmol/L Potassium (3.5-5.1) mmol/L Chloride (98-107) mmol/L Carbon Dioxide (21-32) mmol/L Anion Gap (3-11) BUN (7-18) mg/dl Creatinine (0.6-1.4) mg/dl Est Cr Clr Drug Dosing ml/min Est GFR ( Amer) Est GFR (Non-Af Amer) BUN/Creatinine Ratio (10-20) Glucose (70-99) mg/dl POC Glucose 139 H 195 H (70-99) Estimat Average Glucose mg/dl Hemoglobin A1c (4.5-5.6) % Lactate (0.4-2.0) mmol/L Calcium (8.5-10.1) mg/dl Magnesium (1.8-2.4) mg/dl Total Bilirubin (0.2-1) mg/dl Direct Bilirubin (0-0.2) mg/dl AST (15-37) U/L ALT (12-78) U/L Alkaline Phosphatase (45-117) U/L Total Protein (6.4-8.2) gm/dl Albumin (3.4-5.0) gm/dl Globulin (2.5-4.0) gm/dl Albumin/Globulin Ratio (0.9-2) Procalcitonin (0-0.5) ng/ml Urine Color Urine Appearance (Clear) Urine pH (4.5-7.5) Ur Specific [place] (1.000-1.030) Urine Protein (Negative) Urine Glucose (UA) (Negative) Urine Ketones (Negative) Urine Blood (Negative) Urine Nitrite (Negative) Urine Bilirubin (Negative) Urine Urobilinogen (Negative) Ur Leukocyte Esterase (Negative) Urine WBC (Auto) (0-5) /hpf Urine RBC (Auto) (0-4) /hpf U Hyaline Cast (Auto) (0-5) /lpf U Epithel Cells (Auto) (0-5) /lpf Urine Bacteria (Auto) (Negative) Stl C. diff Tox B Gene Neg C.diff Toxin B (Neg) Random Gentamicin mcg/ml 02/13/18 02/13/18 Range/Units 16:02 20:26 WBC (4.8-10.8) K/uL RBC (4.7-6.1) M/uL Hgb (14.0-18.0) g/dL Hct (42-52) % MCV (80-100) fL MCH (25-34) pg MCHC (32-36) g/dL RDW Std Deviation (36.4-46.3) fL RDW Coeff of Lilian (11.5-14.5) % Plt Count (130-400) K/uL MPV (7.4-10.4) fL Immature Gran % (Auto) % Neut % (Auto) % Lymph % (Auto) % [place] % (Auto) % Eos % (Auto) % Baso % (Auto) % Immature Gran # (Auto) (0.00-0.02) K/uL Neut # (Auto) (1.4-6.5) K/uL Lymph # (Auto) (1.2-3.4) K/uL [place] # (Auto) (0.11-0.59) K/uL Eos # (Auto) (0-0.5) K/uL Baso # (Auto) (0-0.2) K/uL Toxic Granulation Toxic Vacuolation Dohle Bodies Platelet Estimate (Normal) Sodium (136-145) mmol/L Potassium (3.5-5.1) mmol/L Chloride (98-107) mmol/L Carbon Dioxide (21-32) mmol/L Anion Gap (3-11) BUN (7-18) mg/dl Creatinine (0.6-1.4) mg/dl Est Cr Clr Drug Dosing ml/min Est GFR ( Amer) Est GFR (Non-Af Amer) BUN/Creatinine Ratio (10-20) Glucose (70-99) mg/dl POC Glucose 164 H 202 H (70-99) Estimat Average Glucose mg/dl Hemoglobin A1c (4.5-5.6) % Lactate (0.4-2.0) mmol/L Calcium (8.5-10.1) mg/dl Magnesium (1.8-2.4) mg/dl Total Bilirubin (0.2-1) mg/dl Direct Bilirubin (0-0.2) mg/dl AST (15-37) U/L ALT (12-78) U/L Alkaline Phosphatase (45-117) U/L Total Protein (6.4-8.2) gm/dl Albumin (3.4-5.0) gm/dl Globulin (2.5-4.0) gm/dl Albumin/Globulin Ratio (0.9-2) Procalcitonin (0-0.5) ng/ml Urine Color Urine Appearance (Clear) Urine pH (4.5-7.5) Ur Specific [place] (1.000-1.030) Urine Protein (Negative) Urine Glucose (UA) (Negative) Urine Ketones (Negative) Urine Blood (Negative) Urine Nitrite (Negative) Urine Bilirubin (Negative) Urine Urobilinogen (Negative) Ur Leukocyte Esterase (Negative) Urine WBC (Auto) (0-5) /hpf Urine RBC (Auto) (0-4) /hpf U Hyaline Cast (Auto) (0-5) /lpf U Epithel Cells (Auto) (0-5) /lpf Urine Bacteria (Auto) (Negative) Stl C. diff Tox B Gene (Neg) Random Gentamicin mcg/ml BMP 02/12/18 02/13/18 22:54 05:50 Sodium 140 139 Potassium 3.5 3.4 L Chloride 106 106 Carbon Dioxide 30 27 BUN 12 13 Creatinine 1.15 1.12 Glucose 149 H 149 H Calcium 8.2 L 8.3 L
[2018-02-14] MEDS: PIPERACILLIN/TAZOBACTAM 3.375 GM in DEXTROSE 5% 100 ML IV SCH ×2 (02:46→09:26)
[2018-02-14 06:17] LABS: Hematocrit (blood only) 36.4 % (42-52); Hemoglobin 12.8 g/dL (14.0-18.0); Mean Corpuscular Hgb Conc 35.2 g/dL (32-36); Mean Corpuscular Volume 87.3 fL (80-100); Mean Platelet Volume 9.2 fL (7.4-10.4); Platelet Count 112 K/uL (130-400); Red Blood Count 4.17 M/uL (4.7-6.1); White Blood Count 5.23 K/uL (4.8-10.8)
[2018-02-14 06:57] LABS: Creatinine Clr Calc Pharmacy 91.2 ml/min; Est GFR (African American) 89.4; Est GFR (Non-African American) 77.1
[2018-02-14] MEDS: INSULIN ASPART 100 UNITS/ML 3 ML PEN SC SCH ×2 (07:55→11:44)
[2018-02-14] MEDS: INSULIN GLARGINE SOLOSTAR 100 UNITS/ML 3 ML PEN SC SCH (07:56)
[2018-02-14] MEDS ORDERED: PHARMACY GLYCEMIC MGMT CONSULT PRN (09:34)
--- NOTE | 2018-02-14 10:44 | Infectious Disease Progress Nt ---
Date of Service February 14, 2018 Assessment & Plan (1) E. coli septicemia: Patient with E. coli sepsis from likely prostatitis following biopsy, with good response to IV antibiotics. Would like to give patient 7 days of IV antibiotics and would recommend use of ertapenem 1 g daily to allow easier outpatient therapy. Will follow that by more prolonged course of oral antibiotics with cefdinir (Omnicef) 300 mg twice daily, likely in the range of 3 -6 more weeks. (2) Acute prostatitis with hematuria: Subjective Patient seen in follow-up for severe E. coli infection. Feeling better today. Remains afebrile, white count is normal. No urinary symptoms. Blood and urine culture growing E. coli. Review of Systems All systems reviewed & are unremarkable except as noted in HPI & below Physical Exam 2 Vital Signs (Past 24 Hours): Last Vital Signs Temp 37.0 C 02/14/18 08:31 Pulse 72 02/14/18 08:31 Resp 16 02/14/18 08:31 BP 131/71 02/14/18 08:31 Pulse Ox 97 02/14/18 08:31 Constitutional: WD/WN, vitals as above comfortable; no acute distress Eyes: PERRL, conjunctivae normal, anicteric sclerae ENMT: external ear and nose normal, oropharynx normal Neck: trachea midline, no thyromegaly neck nontender Respiratory: normal respiratory effort, lungs clear to auscultation normal percussion; no respiratory distress Cardiovascular: Rate/Rhythm: regular rate and regular rhythm Heart Sounds: normal S1 and normal S2; no gallop, no murmur and no cardiac rub Gastrointestinal (Abdomen): normal bowel sounds, soft, nontender, no hepatosplenomegaly Musculoskeletal: no cyanosis or clubbing, extremities motor strength 5/5 No spinal tenderness, no joint swelling or erythema Skin: no rashes, warm and dry no lesions Neurologic: moves all extremities and awake; no focal motor deficits Motor/ Sensory: no sensory deficit Psychiatric: A+Ox3, euthymic affect Lymphatic: no cervical or axillary lymphadenopathy no inguinal lymphadenopathy Results & Data Laboratory Results Short CBC 02/14/18 Range/Units 05:56 WBC 5.23 (4.8-10.8) K/uL Hgb 12.8 L (14.0-18.0) g/dL Hct 36.4 L (42-52) % Plt Count 112 L (130-400) K/uL BMP 02/14/18 05:56 Creatinine 1.04 Diagnostic Findings Microbiology 02/13/18 15:10 Stool Escherichia coli Shiga Toxins - Preliminary 02/13/18 15:10 Stool Stool Culture - Preliminary No Salmonella isolated to date, No Shigella isolated to date, No Campylobacter jejuni isolated to date. 02/13/18 15:10 Stool WBC Smear - Final 02/10/18 20:10 Blood Blood Culture - Final Escherichia coli 02/10/18 19:45 Urine,Clean Catch Urine Culture - Final Escherichia coli 02/10/18 20:10 Blood Blood Culture - Preliminary No growth to date.
[2018-02-14] MEDS: ENOXAPARIN INJ 40 MG/0.4 ML SYR SQ SCH (11:45)
[2018-02-14] MEDS ORDERED: INSULIN GLARGINE SOLOSTAR 100 UNITS/ML 3 ML PEN SC ONE ×2 (11:45→21:00)
--- NOTE | 2018-02-14 12:04 | Pharmacy Report ---
Glycemic Control Consultation - Date of Service February 14, 2018 - Scope Scope: Glycemic Pharmacist consulted by Dr Cheung on 02/14/18 for glycemic control and to write orders per [facility] inpatient glycemic control protocol - Objective Weight: 103.2 kg Accuchecks BSG (last 24hrs): 02/13/18 02/13/18 02/14/18 16:02 20:26 07:29 POC Glucose 164 H 202 H 197 H Laboratory Data (last 24hrs): 02/14/18 05:56 Creatinine 1.04 Est Cr Clr Drug Dosing 91.2 HbA1c: Hemoglobin A1c 7.6 % (4.5-5.6) H 02/11/18 05:18 - Recent Pertinent Medications Outpatient Anti-diabetic Regimen: * Metformin 1 g po BID * A1c = 7.6 % on 02/11/18 The patient is currently receiving: * Basal insulin: Lantus 10 units every 12 hours * Correctional Insulin: Novolog Correction per scale ACHS Goal Range: Low 140 mg/dL - High 180 mg/dL Correction Factor: 25 mg/dL/unit * Prandial insulin: Per carb ratio of 1 unit per 8 grams CHO consumed * Oral Agents: On hold Risk Factors for Insulin Resistance: * Infection: E. coli sepsis 2nd prostatitis * Diet: T2DM - Assessment & Plan Assessment & Plan: ASSESSMENT: * 62 yo M with T2DM controlled on one oral agent alone as an outpatient admitted 02/11 2nd E. coli urosepsis * Stressors stable * No changes to glycemic regimen noted since 02/11 * BSG's ranging 164-202 mg/dL over the last 24 hours * AM fasting BSG elevated to 195 mg/dL today - will increase Lantus * Persistent post-prandial elevations noted yesterday - will tighten CHO ratio * High goal range noted with correctional insulin provided only once BSG's >180 mg/dL - will decrease goal range PLAN FOR INPATIENT GLYCEMIC CONTROL: Continue to hold outpatient oral diabetes medications Basal insulin * Lantus 10 units SQ x1 now * Additional Lantus qPM x1 as follows: * 5 units for BSG less than 120 mg/dL * 10 units for BSG 120-180 mg/dL * 15 units for BSG greater than 180 mg/dL * Ongoing Lantus BID starting tomorrow AM as follows: * 10 units for BSG less than 120 mg/dL * 15 units for BSG 120-180 mg/dL * 20 units for BSG greater than 180 mg/dL Bolus insulin * NovoLog per scale ACHS or Q6hrs while NPO * Goal Range: Low 110 mg/dL - High 140 mg/dL * Correction Factor: 25 mg/dL/unit * Nutritional / Prandial insulin per carb ratio of 1 unit per 7 grams CHO consumed * Please note that the plan above was derived based on current level of insulin resistance and hospital stress. These recommendations are appropriate for inpatient admission only. Plan of care upon discharge will need to be reassessed to avoid potential outpatient hypo/hyperglycemia. Thank you.
[2018-02-14] MEDS ORDERED: CONSULT PHARMACY STA (13:17)
[2018-02-14] MEDS ORDERED: ERTAPENEM CONSULT ACTIVE PRN (13:36)
[2018-02-14] MEDS ORDERED: ERTAPENEM SODIUM 1,000 MG in SODIUM CHLORIDE 0.9% 50 ML IV SCH (14:00)
[2018-02-14 15:46] VITALS: PULSE 71; TEMP 99; O2SAT 97
[2018-02-14 16:02] VITALS: BP 137/70
[2018-02-15] MEDS ORDERED: INSULIN GLARGINE SOLOSTAR 100 UNITS/ML 3 ML PEN SC SCH (09:00)
--- NOTE | 2018-02-23 10:56 | Discharge Summary ---
Date of Service February 23, 2018 Admission HPI Per Admitting Provider HISTORY OF PRESENT ILLNESS: This is a 62-year-old male with past medical history significant for diabetes, hypertension, history of multiple kidney stones and cystoscopies, chronic kidney disease stage III, BPH, who recently had TURP procedure last Sunday presents with fever at home. Post-procedure, he was told that he will have some hematuria and also some blood in the stools. He had some blood in the stools on Sunday, but that has almost resolved now, but still has some hematuria. No burning micturition, but he was having temperature 101 degrees Fahrenheit at home and also having chills. So he came to the ER. In the ER he was having some temp spike, but hemodynamics are stable and no elevation of white count, but urinalysis was positive. Procalcitonin level was high. ER physician discussed with urologist epic professional and was okay for IV Zosyn and admission in the hospital. Currently, patient feels chilly. He says once in a while he gets shooting pain to the groins. He is somewhat nauseous. Denies any chest pain. No shortness of breath, no cough, no abdominal pain. Currently feeling hungry. Denies any headaches, no dizziness, no blurred visions. No earache, no runny nose, no sore throat, no difficulty swallowing. Currently hemodynamically stable. Admission Exam Per Admitting Provider PHYSICAL EXAMINATION: GENERAL: The patient is of moderate build, not in acute distress. VITAL SIGNS: Temperature 38.3, pulse 86, respiratory rate 18, blood pressure 136/68, oxygen 95% on room air. HEENT: No pallor, no icterus. Pupils equal, round, and reactive to light. NECK: No JVD or neck masses, no carotid bruits. CARDIOVASCULAR: S1, S2 heard. Regular rate and rhythm, no murmur, no gallop. RESPIRATORY SYSTEM: Normal AP diameter. No accessory muscle use. No wheezing, no crackles. ABDOMEN: Soft, bowel sounds present. Nontender. No distention. CENTRAL NERVOUS SYSTEM: Cranial nerves II through XII are grossly intact, nonfocal. EXTREMITIES: No edema, no erythema. Principal Diagnosis E coli bacteremia 2/2 prostatitis Sepsis-resuscitated Discharge Exam CONSTITUTIONAL: WNWD, vitals as above, appears improved clinically. EYES: Normal conjuctivae, no scleral icterus ENT: external ear and nose normal, MMM RESPIRATORY: clear to auscultation bilaterally, no crackles, rales or wheezes, normal respiratory effort CARDIOVASCULAR: regular rate and rhythm, S1 and 2 heard without murmurs, gallops or rubs, no JVD, no peripheral edema GASTROINTESTINAL: normal bowel sounds, soft, nontender. No epigastric or upper abdominal tenderness. No CVA tenderness MUSCULOSKELETAL: strength 5/5 throughout, head is normocephalic and atraumatic SKIN: warm and dry NEUROLOGIC: No facial palsy, no dysarthria. CN 2-12 grossly intact, normal cognition, normal speech, no tremor PSYCHIATRIC: alert cooperative and oriented to person, place and time. Discharge Data Allergies Allergy/AdvReac Type Severity Reaction Status Date / Time No Known Allergies Allergy Verified 02/17/18 08:28 Consultations 02/10/18 22:11 ED Decision to Admit Stat 02/11/18 00:10 Consult Case Management - Discharge Planning Routine 02/11/18 08:00 Consult Urology Routine 02/11/18 13:57 Consult Infectious Diseases Routine Ordered Studies 02/10/18 19:30 CT abd pelvis IV con only Stat Hospital Course (1) Sepsis: (2) Acute prostatitis with hematuria: (3) Diabetes mellitus, type 2: . (4) Diarrhea: (5) Hypertension: 62-year-old man with history of BPH who recently had a prostate biopsy presented after fever and chills that developed a couple days later post- procedure he had some blood in the stools and some gross hematuria. He is admitted to the hospitalist service. Urology was consulted. Vancomycin and Zosyn was started. Urology added gentamicin as blood culture reports initially revealed gram-negative bacteria. Infectious disease was consulted, and discontinue vancomycin. After a couple of days he improved clinically. Cultures eventually grew out E. coli secondary to prostatitis following biopsy. Ertapenem was recommended to complete 7 days of IV antibiotics followed by a more prolonged course of oral antibiotics with Omnicef 300 mg p.o. twice daily in the range of 3-6 more weeks. He was discharged in stable condition with close PCP follow-up. Total Time Total Time Spent Total Time Spent (In Minutes): 60 Total Time Includes: Examination of the Patient, Discharge Planning, Medication Reconciliation and Communication With Other Providers Discharge Plan Discharge Items Patient Disposition: Home - Self-Care Reason For Visit: FEVER Discharge Diagnosis: E coli bacteremia 2/2 prostatitis Sepsis-resuscitated Condition: Good Discharge Goals: Decrease discomfort Activity: Resume your previous activity Non-emergency contact: Primary Care Provider Call non-emergency contact if: you have any medication questions, your pain is not controlled, your pain is unusual for you and you have a fever Follow-up/Referrals: Adán Padilla MD [Physician] - Diet: Carb Consistent or DM2 and Heart Healthy Addtl Provider Instructions: Please take all medications as instructed on discharge list. Please remember to start your second antibiotic, CEFDINIR, on Saturday 02/18 which is the day after your last infusion of ERTAPENEM IV. You have the following appointment: PRIMARY CARE 02/18/2018 11:00 AM Provider Chidi Ching MD [facility] It was a pleasure taking care of you! Please call if you have any questions or problems. You can reach a [facility] hospitalist on duty at [facility] 24 hours a day by calling [phone]. Take care of yourself. Gina Cheung, DO [facility] Pres[facility]: New cefdinir 300 mg capsule 300 mg PO BID 21 Days Qty: 42 RF: 0 Continue aspirin 81 mg Tablet,Delayed Release (Dr/Ec) 81 mg PO DAILY RF: 0 metformin 1,000 mg tablet 1,000 mg PO BID RF: 0 hydrochlorothiazide 25 mg tablet 25 mg PO DAILY RF: 0 potassium citrate 15 mEq tablet extended release 15 mg PO DAILY RF: 0 omega 1-cbh-nef-fish oil [Fish Oil] 1,000 mg (120 mg-180 mg) Capsule 1,000 mg PO DAILY RF: 0 Discontinued ciprofloxacin HCl 500 mg tablet 500 mg PO Q12H RF: 0 Visit Report Forms: My [facility] Stand-Alone Forms: [facility] Discharge Orders: Discharge Order (Routine); Ordered 02/14/18 Ordered By: Gina Cheung Admission Data Admit Date/Time: 02/10/18 23:15 Attending Provider: Gina Cheung Admit Provider: Jameel Peralta Primary Care Provider: Morgan Hayden Other Providers: Jameel Peralta ; Adán Padilla ; Sixto Torres Service: Telemetry Other Interventions: Discharge Summary Assessment (RN) Last Done: 02/14/18 15:59 DC Date/Time DO NOT enter until pt leaves facility: 02/14/18 16:19
== END 2018-02-14 16:19 | disposition home or self-care (01) | DRG 862 ==
LOC: ED 19:14 → 2E 23:15
DX: N99.89 Other postprocedural complications and disorders of genitourinary system; Z80.51 Family history of malignant neoplasm of kidney; I12.9 Hypertensive chronic kidney disease with stage 1 through stage 4 chronic kidney disease, or unspecified chronic kidney disease; B96.20 Unspecified Escherichia coli [E. coli] as the cause of diseases classified elsewhere; N41.1 Chronic prostatitis; Z16.24 Resistance to multiple antibiotics; Z79.84 Long term (current) use of oral hypoglycemic drugs; Z82.49 Family history of ischemic heart disease and other diseases of the circulatory system; A41.51 Sepsis due to Escherichia coli [E. coli]; Z87.442 Personal history of urinary calculi; E11.22 Type 2 diabetes mellitus with diabetic chronic kidney disease; Z83.3 Family history of diabetes mellitus; N18.3 Chronic kidney disease, stage 3 (moderate); E83.42 Hypomagnesemia; N41.0 Acute prostatitis; T81.44XA Sepsis following a procedure, initial encounter; Z98.890 Other specified postprocedural states; Z79.82 Long term (current) use of aspirin; Z79.899 Other long term (current) drug therapy; R31.0 Gross hematuria; Z84.1 Family history of disorders of kidney and ureter; R19.7 Diarrhea, unspecified